=== PATIENT | male | born 1950 | race Caucasian/White ===

== ENCOUNTER 2024-11-08 10:30 | Outpatient (REF) | payer MEDICARE, OTHER, SELFPAY ==
--- OUTSIDE RECORDS SUMMARY | 2024-11-08 14:24 | XMS_ITS | Clinical Summary ---
Author Organization [facility] ity Address [address] [place] [address] Care Team Providers Care Process Worker Name Role Phone Manoj Bowers MD Primary [...] age to complete this topic Care Teams Process Worker Relationship Specialty Start Date End Date Manoj Bowers MD PCP - General Internal Medicine 10/02/20
[2024-11-08 18:22] LABS: MANUAL DIFF FLAG NO
[2024-11-08 18:28] LABS: Basophils Absolute Auto 0.1 X10*3/uL (0.0-0.2); Basophils Percent Auto 0.7 % (0-2); Eosinophils Absolute Auto 0.1 X10*3/uL (0.0-0.4); Eosinophils Percent Auto 1.2 % (0-4); Hemoglobin 15.6 g/dl (14.0-18.0); Imm Gran Abs Auto 0.05 X10*3/uL (0.00-0.03); Imm Gran Pct Auto 0.6 % (0.0-0.4); Lymphocytes Absolute Auto 1.1 X10*3/uL (1.2-4.9); Lymphocytes Percent Auto 12.7 % (20-40); Mean Corpuscular HGB Conc 34.7 g/dl (31.0-36.0); Mean Corpuscular Hemoglobin 32.2 pg (27.0-33.0); Mean Platelet Volume 10.8 fL (9.4-12.4); Monocytes Absolute Auto 0.7 X10*3/uL (0.1-1.2); Monocytes Percent Auto 8.5 % (2-11); Neutrophils Absolute Auto 6.4 x10*3/uL (2.0-8.3); Neutrophils Percent Auto 76.3 % (45-73); Platelet Count 225 X10*3/uL (160-400); Red Blood Count 4.84 X10*6/uL (4.60-5.80); Red Cell Distribution Width 12.1 % (11.0-16.0); White Blood Count 8.3 X10*3/uL (4.8-10.8)
[2024-11-08 18:43] LABS: Alanine Aminotransferase 27 U/L (0-40); Aspartate Amino Transferase 33 U/L (5-37); C Reactive Protein 1.17 mg/dL (< or = 0.50); Estimated Glomerular Filt Rate > 60
[2024-11-08 18:51] LABS: Rheumatoid Factor < 13.0 IU/mL (<15.0)
[2024-11-08 19:06] LABS: Erythrocyte Sedimentation Rate 12 MM/HR (0-15)
[2024-11-09 08:01] LABS: HBc Num1 0.15 S/CO (0.00-0.79); HBsAGNum1 0.44 S/CO (0.00-0.99); Hepatitis B Core Antibody Nonreactive (Nonreactive); Hepatitis B Surface Antigen Negative (Negative); ~HepC Num1 0.13 S/CO (0.00-0.79); ~Hepatitis B Surface Antibody NONREACTIVE (Nonreactive); ~Hepatitis C Antibody Nonreactive (Nonreactive)
[2024-11-11 13:48] LABS: TS Negative Control Passed; TS Panel A 0; TS Panel B 0; TS Positive Control Passed; TSpotTB Negative (Negative)
[2024-11-12 10:44] LABS: Anti Nuclear Antibody Screen NEGATIVE (NEGATIVE)
[2024-11-13 12:47] LABS: Cyclic Citrullinated Peptide <16 UNITS
== END 2024-11-08 10:31 | disposition home or self-care (01) ==
LOC: HO.HKASLDS 10:30
PROVIDERS: Visit Provider Internal Medicine Rheumatology
DX: M35.3 Polymyalgia rheumatica (principal); Z79.60 Long term (current) use of unspecified immunomodulators and immunosuppressants; Z79.899 Other long term (current) drug therapy; M19.90 Unspecified osteoarthritis, unspecified site; M62.81 Muscle weakness (generalized); M70.61 Trochanteric bursitis, right hip; M70.62 Trochanteric bursitis, left hip
CPT/HCPCS: 36415; 82085; 82550; 82565; 84450; 84460; 85025; 85652; 86038; 86140; 86200; 86431; 86481; 86704; 86706; 86803; 87340; 99202

== ENCOUNTER 2024-11-08 10:30 | Outpatient (AMB) | payer MEDICARE, OTHER, SELFPAY ==
--- NOTE | 2024-11-08 10:33 | A.OFFVIS_ITS ---
Vital Signs 11/08/24 10:41 Height 5 ft 11 in Weight 235 lb 7.259 oz BMI 32.8 BP 130/80 Blood Pressure Location Lt brachial Position Sitting Pulse 93 Pulse Source Pulse Oximeter Pulse Oximetry (%) 98 Intake Visit Reasons: PMR Intake Note: Pt presents today for a visit for PMR Allergies No Known Allergies Allergy (Verified 11/08/24 10:39) HPI HPI PMR: Details: In 05/2023, he had acute onset pain in groin/thighs, hard to get out of bed and chair to stand, progressing to have pain in shoulders in [place]. He had a difficultly with movement. 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 He had completed PT after knee replacement. PCP did workup, which revealed elevated ESR 81mmg/hr 07/26/2023. He was started on prednisone 20mg daily 10 weeks. He was on prednisone 10mg daily for 3 months. Slowly taper of prednisone. He is now on prednisone 4mg daily for 8 weeks. MS 1 hour. He has pain in hands and knees. When he decreased prednisone to 5mg daily he had difficulty with arm exercises, sit ups, walking causes soreness in hips. Hard to squat. He had a personal investment adviser prior to prednisone 5mg daily. He sleeps in, which is not normal for patient. He can sleep 12-15 hours. He has longstanding CARMENCITA with intolerance to mask. Last sleep apnea test was 10 years ago. Hx of prostate cancer s/p prostectomy, left TKR 02/2023, DM, CARMENCITA, thryroid nodule biopsied. Ex-smoker 15 years ago. Does not drink alcohol. 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 No history of rheumatological family history. Review of Systems Const All systems reviewed & are unremarkable except as noted in HPI and below Physical Exam Vital Signs: Last Vital Signs Pulse 93 11/08/24 10:41 BP 130/80 11/08/24 10:41 Pulse Ox 98 11/08/24 10:41 BMI result Body Mass Index 32.8 Const Other: General: Comfortable CVS: RRR Respiratory: clear to auscultation bilaterally. Good respiratory effort Skin: No lesions seen MSK: Synovitis left 2nd and 3rd MCP and right 3rd and 4th MCP without tenderness. Synovitis left 2nd PIP without tenderness. Weak media supervisor bilateral hands. Good range of motion of upper extremities. Limited external rotation bilateral hips. Bilateral trochanteric bursa tenderness found. Infrapatellar bursa fullness palpated without tenderness. No knee effusion present. Knee flexion 100 degrees bilateral. He is able to get up from seated position to standing position without using arms on armrest. 5/5 power upper extremities and lower extremities with a lot of effort. Assessment & Plan Assessment & Plan (1) Inflammatory arthritis: Comment: Was initially diagnosed with PMR but has developed synovitis in his hands to suggest inflammatory arthritis. Rheumatoid arthritis can present as atypically as PMR in the elderly. I have ordered workup and labs for further evaluation. He has subjective weakness and stopped working out with his technical trainer when prednisone was reduced to 5 mg daily. He has preserved strength but it requires a lot of effort. 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 He has increased fatigue and has needed to sleep 12-15 hours a day. He has background of uncontrolled sleep apnea which may be contributing along with chronic uncontrolled autoimmune disease. We discussed considering methotrexate as steroid sparing agent. Discussed side effects, benefits and drug monitoring on methotrexate. Code(s): M19.90 - Unspecified osteoarthritis, unspecified site Category: Medical Plan: Baseline x-rays ordered of hand and feet Labs ordered Increase prednisone to 7.5 mg daily Follow-up with sleep physician and consider reordering sleep study. He has not tolerated CPAP machine in the past. Consider discussing other options such as hardware placement. Return to clinic in 1 month (2) Muscle weakness: Comment: Preserved muscle strength on exam. Consider steroid induced myopathy contributing to subjective weakness. I will be further working up myopathy with ordering muscle enzymes and inflammatory markers. Code(s): M62.81 - Muscle weakness (generalized) Category: Medical Plan: Labs ordered (3) PMR (polymyalgia rheumatica): Comment: Initial diagnosed Code(s): M35.3 - Polymyalgia rheumatica Category: Medical Plan: See above (4) Greater trochanteric bursitis of both hips: Comment: Bilateral. Discussed diagnosis and management. Code(s): M70.61 - Trochanteric bursitis, right hip; M70.62 - Trochanteric bursitis, left hip Category: Medical Plan: PT ordered. He prefers to do PT local to his home at [facility]. Prescription given to patient. (5) Infrapatellar bursitis of right knee: Comment: Discussed diagnosis and management. Code(s): M70.51 - Other bursitis of knee, right knee Category: Medical Plan: He will try utilizing diclofenac gel 1% applied to affected area every 4-6 hours as needed Ice knee twice a day If no further improvement with above, I will order PT (6) Other penitentiary (current) drug therapy: Comment: Long-term use of glucorticosteroid therapy Code(s): Z79.899 - Other technician terminal and repeater (current) drug therapy Category: Medical Plan: He will need bone density if he has not had 1 in 2 years Orders: Orders Alanine Aminotransferase Today Z79.60 - terminal operations supervisor (current) use of unspecified immunomodulators and immunosuppressants Aspartate Amino Transferase Today Z79.60 - nursing home (current) use of unspecified immunomodulators and immunosuppressants Complete Blood Count Auto Diff Today Z79.60 - nursing home (current) use of uns pecified immunomodulators and immunosuppressants Creatinine Today Z79.60 - terminal operations supervisor (current) use of unspecified immunomodulators and immunosuppressants Erythrocyte Sedimentation Rate Today Z79.899 - Other technician terminal and repeater (current) drug therapy T Spot TB Today M19.90 - Unspecified osteoarthritis, unspecified site Hepatitis B,C Profile Today M19.90 - Unspecified osteoarthritis, unspecified site Cyclic Citrullinated Peptide Today M19.90 - Unspecified osteoarthritis, u nspecified site Creatine Kinase Total Today M62.81 - Muscle weakness (generalized) Aldolase Today M19.90 - Unspecified osteoarthritis, unspecified site, M35.3 - Polymyalgia rheumatica, M62.81 - Muscle weakness (generalized), M70.61 - Trochanteric bursitis, right hip, M70.62 - Trochanteric bursitis, left hip RU Reflex Titer and Pattern Today M19.90 - Unspecified osteoarthritis, unspecified site XR foot LT min 3V Today M19.90 - Unspecified osteoarthritis, unspecified site XR hand RT min 3V Today M19.90 - Unspecified osteoarthritis, unspecified site C Reactive Protein Today Z79.899 - Other penitentiary (current) drug therapy Rheumatoid Factor Today M19.90 - Unspecified osteoarthritis, unspecified site XR foot RT min 3V Today M19.90 - Unspecified osteoarthritis, unspecified site XR hand LT min 3V Today M19.90 - Unspecified osteoarthritis, unspecified site PT Evaluation and Treatment Today M70.61 - Trochanteric bursitis, right hip, M70.62 - Trochanteric bursitis, left hip Medications: New prednisone Take with food 7.5 mg (3 x 2.5 mg) PO DAILY 90 tabs 1RF Coding Level of Care Code New Pt Level 4 (21024) Diagnoses Inflammatory arthritis M19.90 Muscle weakness M62.81 PMR (polymyalgia rheumatica) M35.3 Greater trochanteric bursitis of both hips M70.61; M70.62 Infrapatellar bursitis of right knee M70.51 Other penitentiary (current) drug therapy Z79.899
[2024-11-08 10:41] VITALS: BP 130/80; PULSE 93; O2SAT 98; BMI 32.8
--- OUTSIDE RECORDS SUMMARY | 2024-11-08 12:16 | XMS_ITS | Clinical Summary ---
Author Organization [facility] ity Address [address] [place] [address] Care Team Providers Care Dna Sequencing Associate Name Role Phone Manoj Bowers MD Primary Care Provider Unavailab le Social History Tobacco Use Types Packs/Day Years Used Date Smoking Tobacco: Former Smokeless Tobacco: Never Alcohol Use Standard Drinks/Week Comments No 0 (1 standard drink = 0.6 oz pur e alcohol) Sex and Gender Information Value Date Recorded Sex Assigned at Not on file Legal Sex Male 6:42 PM EST Gender Identity Not on file Sexual Orientation Not on file Obstetrics History Last Filed Vital Signs Vital Sign Reading Time Taken Comments Blood Pressure 128/78 03/04/2022 9:35 AM EDT Pulse 77 03/04/2022 9:35 AM EDT Temperature - - Respiratory Rate - - Oxygen Saturation - - Inhaled Oxygen Concentration - - Weight 102 kg (225 lb 3.2 oz) 03/04/2022 9:35 AM EDT Height 180.3 cm (5' 11 ) 03/04/2022 9:35 AM EDT Body Mass Index 31.41 03/04/2022 9:35 AM EDT Plan of Treatment Health Maintenance Due Date Last Done Comments DTaP,Tdap,and Td Vaccines (1 - Tdap) 1971 Pneumococcal Vaccine: 50+ Ye ars (1 of 1 - PCV) 2002 Zoster Vaccines (1 of 2) 2002 Abdominal Aortic Aneurysm (A AA) Screen 08/21/2022 Cholesterol Screening (Lipid Panel) 08/21/2022 Colorectal Cancer Screening: Colonoscopy 08/21/2022 Depression Screening 08/21/2022 Falls Risk Assessment 08/21/2022 Hepatitis C Screening 08/21/2022 Social Influencers of Health Screening 08/21/2022 COVID-19 Vaccine (1 - 2023-2 5 season) 2024 Influenza Vaccine (#1) 2024 RSV Immunization Patients 60 + Years Old (1 - 1-dose 75+ series) 2027 HIB Vaccines Aged Out No longer eligi ble based on patient's age to complete this topic HPV Vaccines Aged Out No longer eligi ble based on patient's age to complete this topic Hepatitis A Vaccines Aged Out No long er eligible based on patient's age to complete this topic Hepatitis B Vaccines Aged Out No long er eligible based on patient's age to complete this topic IPV Vaccines Aged Out No longer eligi ble based on patient's age to complete this topic MMR Vaccines Aged Out No longer eligi ble based on patient's age to complete this topic Meningococcal ACWY Vaccine Aged Out N o longer eligible based on patient's age to complete this topic Meningococcal B Vacine Aged Out No lo nger eligible based on patient's age to complete this topic RSV Immunization Patients Un maye 20 months Aged Out No longer eligible b ased on patient's age to complete this topic Varicella Vaccines Aged Out No longer eligible based on patient's age to complete this topic Care Teams Dna Sequencing Associate Relationship Specialty Start Date End Date Manoj Bowers MD PCP - General Internal Medicine 10/02/20
== END 2024-11-08 11:48 | disposition home or self-care (01) ==
PROVIDERS: Visit Provider Internal Medicine Rheumatology
DX: M19.90 Unspecified osteoarthritis, unspecified site (principal); M62.81 Muscle weakness (generalized); M35.3 Polymyalgia rheumatica; M70.61 Trochanteric bursitis, right hip; M70.62 Trochanteric bursitis, left hip; M70.51 Other bursitis of knee, right knee; Z79.899 Other long term (current) drug therapy
CPT/HCPCS: 99204

== ENCOUNTER 2024-11-09 12:18 | Outpatient (REF) | payer MEDICARE, OTHER, SELFPAY ==
--- NOTE | ~2024-11-09 | XR_ITS ---
CLINICAL HISTORY: M19.90 - Unspecified osteoarthritis, unspecified site 3 view left hand Comparison: None Findings: No fractures or dislocations. There are changes of osteoarthritis in the 1st carpometacarpal joint No erosions. No radiopaque foreign body. IMPRESSION: 1. No acute findings This document has been electronically signed by: Gentry Naranjo MD on 11/09/2024 20:19:08
--- NOTE | ~2024-11-09 | XR_ITS ---
CLINICAL HISTORY: M19.90 - Unspecified osteoarthritis, unspecified site 3 view right hand Comparison: None Findings: No fractures or dislocations. There are changes of osteoarthritis in the 1st carpometacarpal joint. No erosions. No radiopaque foreign body. IMPRESSION: 1. No acute findings This document has been electronically signed by: Gentry Naranjo MD on 11/09/2024 20:57:10
--- NOTE | ~2024-11-09 | XR_ITS ---
CLINICAL HISTORY: M19.90 - Unspecified osteoarthritis, unspecified site 3 view left foot Comparison: None Findings: No fractures or dislocations. No significant loss of joint space, osteophytes, or erosions. No ankle effusion. No radiopaque foreign body. IMPRESSION: 1. No acute findings. This document has been electronically signed by: Gentry Naranjo MD on 11/09/2024 20:57:23
--- NOTE | ~2024-11-09 | XR_ITS ---
CLINICAL HISTORY: M19.90 - Unspecified osteoarthritis, unspecified site 3 view right foot Comparison: None Findings: Bones intact. No dislocations. No significant arthritic change or erosions. No ankle effusion. No radiopaque foreign body. IMPRESSION: 1. No acute findings. This document has been electronically signed by: Gentry Naranjo MD on 11/09/2024 20:57:18
--- OUTSIDE RECORDS SUMMARY | 2024-11-09 14:33 | XMS_ITS | Clinical Summary ---
Author Organization [facility] ity Address [address] [place] [address] Care Team Providers Care Oven Tender Bagels Name Role Phone Manoj Bowers MD Primary [...] age to complete this topic Care Teams Oven Tender Bagels Relationship Specialty Start Date End Date Manoj Bowers MD PCP - General Internal Medicine 10/02/20
== END 2024-11-09 12:19 | disposition home or self-care (01) ==
LOC: HO.XRAY 12:18
PROVIDERS: PCP Physician Assistant; Visit Provider Internal Medicine Rheumatology
DX: M19.90 Unspecified osteoarthritis, unspecified site (principal)
CPT/HCPCS: 73130; 73630

== ENCOUNTER → 2024-11-09 12:26 | Outpatient (BNV) | payer MEDICARE, OTHER, SELFPAY | PROVIDERS: PCP Physician Assistant; Visit Provider Specialist | DX: M19.041 Primary osteoarthritis, right hand (principal); M19.042 Primary osteoarthritis, left hand; M19.072 Primary osteoarthritis, left ankle and foot; M19.071 Primary osteoarthritis, right ankle and foot | CPT/HCPCS: 73130; 73630 ==

== ENCOUNTER 2024-11-14 13:06 | Outpatient (REF) | payer MEDICARE, OTHER, SELFPAY ==
--- OUTSIDE RECORDS SUMMARY | 2024-11-14 15:33 | XMS_ITS | Clinical Summary ---
Author Organization [facility] ity Address [address] [place] [address] Care Team Providers Care Family Preservation Worker Name Role Phone Manoj Bowers MD [...] age to complete this topic Care Teams Family Preservation Worker Relationship Specialty Start Date End Date Manoj Bowers MD PCP - General Internal Medicine 10/02/20
[2024-11-15 20:29] LABS: JO 1 Antibody <1.0 NEG AI (<1.0 NEG)
[2024-11-19 21:19] LABS: Aldolase 5.4 U/L (<=8.1)
[2024-11-21 11:44] LABS: Anti Nuclear Antibody Screen NEGATIVE
[2024-11-21 11:45] LABS: SM/Ribonucleoprotein Ab <1.0 NEG; Smith Protein <1.0 NEG
== END 2024-11-14 13:07 | disposition home or self-care (01) ==
LOC: HO.HKASLDS 13:06
PROVIDERS: Visit Provider Internal Medicine Rheumatology
DX: M62.81 Muscle weakness (generalized) (principal); M19.90 Unspecified osteoarthritis, unspecified site
CPT/HCPCS: 36415; 82085; 82550; 86038; 86235

== ENCOUNTER 2024-12-11 09:01 | Outpatient (AMB) | payer MEDICARE, OTHER, SELFPAY ==
--- NOTE | 2024-12-11 09:08 | A.OFFVIS_ITS ---
Vital Signs 12/11/24 09:09 Height 5 ft 11 in Weight 228 lb 9.91 oz BMI 31.9 BP 128/78 Blood Pressure Location Rt brachial Position Sitting Pulse 78 Pulse Source Pulse Oximeter Pulse Oximetry (%) 98 Oxygen Delivery Method Room Air Intake Visit Reasons: 1 Month Intake Note: Patient is here for follow up on PMR and lab and x-ray review. Allergies No Known Allergies Allergy (Verified 12/11/24 09:15) Review of Systems Const All systems reviewed & are unremarkable except as noted in HPI and below Physical Exam Vital Signs: Last Vital Signs Pulse 78 12/11/24 09:09 BP 128/78 12/11/24 09:09 Pulse Ox 98 12/11/24 09:09 Oxygen Delivery Method Room Air 12/11/24 09:09 BMI result Body Mass Index 31.9 Const Other: General: Comfortable CVS: RRR Respiratory: clear to auscultation bilaterally. Good respiratory effort Skin: No lesions seen MSK: Synovitis left 2nd and 3rd MCP and right 2-4th MCP with tenderness. Synovitis left 2nd and 3rd PIP with tenderness. Normal range of motion of upper extremities. Limited external rotation bilateral hips. Bilateral trochanteric bursa tenderness found. No knee effusion present. Knee flexion 100 degrees bilateral. He is able to get up from seated position to standing position without using arms on armrest. 5/5 power upper extremities, 4/5 power right hip flexor. Rest of lower extremity is 5/5 power. Assessment & Plan Assessment & Plan (1) Muscle weakness: Comment: With proximal right lower extremity weakness on exam, inflammatory arthritis affecting hands, mild elevation in muscle enzymes, mild elevation in CRP on prednisone 5mg qd. Recent labs on higher dose of prednisone from 5 mg daily to 7.5 mg daily shows improvement of muscle enzyme CK and patient is more functional. He is participating in physical therapy. There is a possibility that he may have overlap syndrome with seronegative RA (-RU/RF/CCP/ACCOUNTS COLLECTOR/Sm) and idiopathic inflammatory myositis. We discussed doing further workup for myositis as it will aid management with effecting choice of DMARD therapy. Patient agrees with plan History: Initially he presented as PMR 05/2023 with weakness in his thighs/pain in groins progressing to bilateral shoulder pain. ESR was 81 mm/hr. He was diagnosed with PMR and treated for with prednisone 20mg qd tapered slowly but has relapsed when prednisone was decreased to 5 mg daily with development of inflammatory arthritis, lower extremity weakness R>L. Code(s): M62.81 - Muscle weakness (generalized) Category: Medical Plan: MRI right femur with and without contrast which will aid targeted muscle biopsy Continue prednisone 7.5 mg daily I am avoiding EMG study because if EMG of right lower extremity is performed it may interfere with interpretation of muscle biopsy results of the affected muscle Myositis specific panel ordered Calcium, albumin vitamin-D ordered due to long-term glucocorticoid use. He will need a bone density if he has not had one in the last 2 years. Return to clinic after MRI to review results (2) Other buttermaker continuous churn (current) drug therapy: Comment: Long-term use of glucocorticoid therapy Code(s): Z79.899 - Other buttermaker continuous churn (current) drug therapy Category: Medical Plan: See above (3) PMR (polymyalgia rheumatica): Comment: Initial diagnosed 05/2023 with relapse disease when prednisone was tapered to 5 mg daily. Code(s): M35.3 - Polymyalgia rheumatica Category: Medical Plan: See above (4) Inflammatory arthritis: Code(s): M19.90 - Unspecified osteoarthritis, unspecified site Category: Medical Plan: see above Orders: Orders Aldolase 12/11/24 M62.81 - Muscle weakness (generalized) MSA Panel 11 Myositis Spec Abs 12/11/24 M62.81 - Muscle weakness (generalized) Vitamin D 25-OH (D2 and D3) 12/11/24 Z79.899 - Other buttermaker continuous churn (current) drug therapy Calcium 12/11/24 Z79.899 - Other half-way (current) drug therapy Erythrocyte Sedimentation Rate 12/11/24 Z79.899 - Other buttermaker continuous churn (current) drug therapy Creatine Kinase Total 12/11/24 M62.81 - Muscle weakness (generalized) Creatinine 12/11/24 M62.81 - Muscle weakness (generalized) UA w Microscopic 12/11/24 M62.81 - Muscle weakness (generalized) MR femur RT wo/w con 12/17/24 M62.81 - Muscle weakness (generalized) Medications: Refilled prednisone Take with food 7.5 mg (3 x 2.5 mg) PO DAILY 90 tabs 1RF Coding Level of Care Code Est Pt Level 4 (41365) Complex EM visit Add On G2211 Diagnoses Muscle weakness M62.81 Other half-way (current) drug therapy Z79.899 PMR (polymyalgia rheumatica) M35.3 Inflammatory arthritis M19.90
[2024-12-11 09:09] VITALS: BP 128/78; PULSE 78; O2SAT 98; BMI 31.9
--- OUTSIDE RECORDS SUMMARY | 2024-12-11 09:46 | XMS_ITS | Clinical Summary ---
Author Organization [facility] ity Address [address] [place] [address] Care Team Providers Care Burrer Hand Name Role Phone Manoj Bowers MD Primary [...] age to complete this topic Care Teams Burrer Hand Relationship Specialty Start Date End Date Manoj Bowers MD PCP - General Internal Medicine 10/02/20
--- OUTSIDE RECORDS SUMMARY | 2024-12-11 09:46 | XMS_ITS ---
Author Name [facility] Organization Unknown History of Medication Use Medication Directions Dispensed Refills Start Date End Date Stat Adult Low Dose Aspirin c ompleted Adderall completed mirtazapine completed valacyclovir (tablet) 1 g co mpleted prednisone 0 completed metformin (Tablet, Extended Release 24 hr) 500 mg c ompleted rosuvastatin completed Encounters Encounter Type Encounter Reason Primary Diagnosis Location Date Ambulatory [facility] 11/10 Care Team Organization Name Specialty Phone Email Start Date End Da te [facility] 11/21/2024 [facility] 11/16/2024
== END 2024-12-11 10:09 | disposition home or self-care (01) ==
LOC: HO.RHES 09:01
PROVIDERS: Visit Provider Internal Medicine Rheumatology
DX: M62.81 Muscle weakness (generalized) (principal); Z79.899 Other long term (current) drug therapy; M35.3 Polymyalgia rheumatica; M19.90 Unspecified osteoarthritis, unspecified site
CPT/HCPCS: 99214; G2211

== ENCOUNTER 2024-12-11 09:01 | Outpatient (REF) | payer MEDICARE, OTHER, SELFPAY ==
--- OUTSIDE RECORDS SUMMARY | 2024-12-11 12:01 | XMS_ITS | Clinical Summary ---
Author Organization [facility] ity Address [address] [place] [address] Care Team Providers Care Boilermaker Welder Name Role Phone Manoj Bowers MD Primary [...] age to complete this topic Care Teams Boilermaker Welder Relationship Specialty Start Date End Date Manoj Bowers MD PCP - General Internal Medicine 10/02/20
[2024-12-11 19:49] LABS: Erythrocyte Sedimentation Rate 3 MM/HR (0-15)
[2024-12-11 19:56] LABS: Calcium 9.4 mg/dL (8.4-10.2); Estimated Glomerular Filt Rate > 60
[2024-12-13 21:28] LABS: JO 1 Antibody <1.0 NEG AI (<1.0 NEG)
[2024-12-15 15:34] LABS: Vitamin D 25-OH, D2 <4 ng/mL; Vitamin D 25-OH, D3 33 ng/mL; Vitamin D 25-OH, Total 33 ng/mL (30-100)
[2024-12-16 06:54] LABS: Aldolase 5.6 U/L (<=8.1)
[2024-12-20 23:54] LABS: Ej Ab <11 SI (<11); Jo-1 Ab <11 SI (<11); MDA5 Ab <11 SI (<11); Mi-2 alpha Ab <11 SI (<11); Mi-2 beta Ab <11 SI (<11); NXP-2 (MJ) Ab <11 SI (<11); Oj Ab <11 SI (<11); Pl-12 Ab <11 SI (<11); Pl-7 Ab <11 SI (<11); SRP Ab <11 SI (<11); TIF1 gamma Ab <11 SI (<11)
== END 2024-12-11 09:02 | disposition home or self-care (01) ==
LOC: HO.HKASLDS 09:01
PROVIDERS: Visit Provider Internal Medicine Rheumatology
DX: M62.81 Muscle weakness (generalized) (principal); Z79.899 Other long term (current) drug therapy; M19.90 Unspecified osteoarthritis, unspecified site; M35.3 Polymyalgia rheumatica
CPT/HCPCS: 36415; 82085; 82306; 82310; 82550; 82565; 84182; 85652; 86235; 99212

== ENCOUNTER → 2024-12-17 10:49 | Outpatient (BNV) | payer MEDICARE, OTHER, SELFPAY | PROVIDERS: PCP Physician Assistant; Visit Provider Radiology Diagnostic Radiology | DX: M62.81 Muscle weakness (generalized) (principal) | CPT/HCPCS: 73720 ==

== ENCOUNTER 2024-12-17 10:52 | Outpatient (REF) | payer MEDICARE, OTHER, SELFPAY ==
--- NOTE | ~2024-12-17 | MR_ITS ---
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 Comparison: None Findings: The examination demonstrates normal-appearing musculature. There is no evidence of muscle edema. There is no evidence of abscess. The fascia is within normal limits. No enhancing abnormalities are seen. The vasculature appears unremarkable. The bones are within normal limits. Impression: Normal examination. No evidence of myositis or other acute process This document has been electronically signed by: Jasper Boyd MD on 12/18/2024 14:15:17
[2024-12-17] MEDS: gadobutroL 10 ML VIAL IVPUSH (11:46)
--- OUTSIDE RECORDS SUMMARY | 2024-12-17 13:01 | XMS_ITS | Clinical Summary ---
Author Organization [facility] ity Address [address] [place] [address] Care Team Providers Care Medical Technician Assistant Name Role Phone Manoj Bowers MD Primary [...] 2024 Influenza Vaccine (#1) 2024 RSV Immunization Adult Patie nts (1 - 1-dose 75+ series) 2027 HIB [...] age to complete this topic Care Teams Medical Technician Assistant Relationship Specialty Start Date End Date Manoj Bowers MD PCP - General Internal Medicine 10/02/20
== END 2024-12-17 10:53 | disposition home or self-care (01) ==
LOC: HO.MRI 10:52
PROVIDERS: PCP Physician Assistant; Visit Provider Internal Medicine Rheumatology
DX: M62.81 Muscle weakness (generalized) (principal)
CPT/HCPCS: 73720; A9585

== ENCOUNTER 2024-12-19 13:51 | Outpatient (REF) | payer MEDICARE, OTHER, SELFPAY ==
--- OUTSIDE RECORDS SUMMARY | 2024-12-19 16:05 | XMS_ITS | Clinical Summary ---
Author Organization [facility] ity Address [address] [place] [address] Care Team Providers Care Juice Packaging Machines Setter Name Role Phone Manoj Bowers MD Primary [...] age to complete this topic Meningococcal B Vaccine Aged Out No l onger eligible based on patient's age to complete this topic RSV Immunization Patients Un maye 20 months Aged Out No longer eligible b ased on patient's age to complete this topic Varicella Vaccines Aged Out No longer eligible based on patient's age to complete this topic Care Teams Juice Packaging Machines Setter Relationship Specialty Start Date End Date Manoj Bowers MD PCP - General Internal Medicine 10/02/20
[2024-12-19 18:37] LABS: Appearance Urine Turbid; Color Urine Dark Yellow; Glucose Urine UA Negative (Negative); Leukocyte Esterase Urine Negative (Negative); Nitrite Urine Negative (Negative); PH 5.5 (5.0-9.0); Specific Gravity - Urine 1.025 (1.005-1.025); UMIC TRIGGER UA YES; Urine Blood Negative (Negative); Urine Ketones Trace mg/dL (Negative); Urine Protein 30 (1+) mg/dL (Neg-Trace)
[2024-12-19 19:02] LABS: Bacteria Urine None Seen (None Seen); Calcium Oxalate Crystals Urine Present; RBC Urine 0-2 /HPF (0-2); Squamous Epithelial Cell Urine 0-2 /HPF (0-2); WBC Urine 0-5 /HPF (0-5)
== END 2024-12-19 13:52 | disposition home or self-care (01) ==
LOC: HO.HKASLDS 13:51
PROVIDERS: Visit Provider Internal Medicine Rheumatology
DX: M62.81 Muscle weakness (generalized) (principal)
CPT/HCPCS: 81001

== ENCOUNTER 2025-01-11 08:26 | Outpatient (AMB) | payer MEDICARE, OTHER, SELFPAY ==
[2025-01-11 08:33] VITALS: BP 128/86; PULSE 67; O2SAT 98; BMI 31.7
--- NOTE | 2025-01-11 08:33 | MHC.OFFVIS ---
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 Patient referred from Albaro Nelson. Last PSG done 2007. Allergies No Known Allergies Allergy (Verified 01/11/25 08:38) HPI Comments Details: 74 year old male with h/o PMR here for an evaluation of sleep. Today pt states he feels chronically fatigued and unable to focus despite going to bed at 9pm and getting up at 6am, sometimes he averages 12 hours of sleep. He continues to holds his breath at night, and has tried the cpap machine, oral mandibular appliances and Provent nose bandages which worked well for him at one point. He was diagnosed with PMR and started on Prednisone now 7.5mg PO daily as this has helped immensely with his proximal muscle pain. He had prostate cancer treated with RALP 08/2022, L. TKR, and T2DM. He denies morning headaches, parasomnias and RLS. He has chronic proximal muscle pain, difficulty getting up out of a chair, goes to PT regularly and is being followed by Rheumatology. 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 He is trying to wean himself off of mirtazapine for sleep, per pscyhiatrist now on 15mg po daily. His mood is good, he has no difficulty with his diet and is trying to lose weight. He does not smoke or drink alcohol. [facility] Medical History (Updated 01/11/25 @ 10:09 by Armando Lr PA-C) Excessive daytime sleepiness PMR (polymyalgia rheumatica) Excessive daytime sleepiness CARMENCITA (obstructive sleep apnea) Other custodial (current) drug therapy Inflammatory arthritis Greater trochanteric bursitis of both hips Muscle weakness Infrapatellar bursitis of right knee Family History (Updated 01/11/25 @ 09:58 by Armando Lr PA-C) Father Type I diabetes mellitus Mother Breast cancer Son Type I diabetes mellitus [facility] Medical History (Updated 01/11/25 @ 10:09 by Armando Lr PA-C) Excessive daytime sleepiness PMR (polymyalgia rheumatica) Excessive daytime sleepiness CARMENCITA (obstructive sleep apnea) 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 Inflammatory arthritis Greater trochanteric bursitis of both hips Muscle weakness Infrapatellar bursitis of right knee Family History (Updated 01/11/25 @ 09:58 by Armando Lr PA-C) Father Type I diabetes mellitus Mother Breast cancer Son Type I diabetes mellitus Review of Systems ENT Denies tongue swelling Aller/Immun Denies tongue swelling Physical Exam Vital Signs: Last Vital Signs Pulse 67 01/11/25 08:33 BP 128/86 01/11/25 08:33 Pulse Ox 98 01/11/25 08:33 Oxygen Delivery Method Room Air 01/11/25 08:33 BMI result Body Mass Index 31.7 Const General: cooperative, comfortable and no acute distress Orientation/consciousness: patient oriented x3 HEENT Face and sinus: Yes face symmetric Teeth and gingiva: other ([place] score 3) Eyes Pupils: Equal, round and reactive pupils present Neck Neck: Yes full ROM Resp Effort & Inspection: normal respiratory effort and able to speak in complete sentences Neuro General: patient oriented x3 Cranial nerves: Yes Facial sensation intact/muscles of mastication intact, Yes Equal, round and reactive pupils present, Yes Midline tongue present, Yes Ability to bilaterally rotate head present and Yes Ability to bilaterally elevate shoulders present Cognition (Neuro): normal cognition Gait exam (Neuro): Normal gait present Motor exam (neuro): 5/5 motor strength present throughout Deep tendon reflexes (DTR's): Right triceps reflex intensity grade: 2+, Left triceps reflex intensity grade: 2+, Rt Biceps (C5, C6): 2+, Left biceps reflex intensity grade: 2+, Right brachioradialis reflex intensity grade: 2+, Left brachioradialis reflex intensity grade: 2+, Right patellar reflex intensity grade: 2+, Left patellar reflex intensity grade: 2+, Right ankle reflex intensity grade: 2+ and Left ankle reflex intensity grade: 2+ Psych Appearance: grossly normal Attitude: cooperative Thought process: Normal thought process present Thought content: Normal thought content present Results Reviewed Results Reviewed: consultation [facility] consultation Rheumatology osteoarthritis Labs Assessment & Plan Assessment & Plan (1) Excessive daytime sleepiness: Code(s): G47.19 - Other hypersomnia Category: Medical (2) CARMENCITA (obstructive sleep apnea): Code(s): G47.33 - Obstructive sleep apnea (adult) (pediatric) Category: Medical (3) Fatigue: Code(s): R53.83 - Other fatigue Category: Medical Qualifiers: Fatigue type: chronic, unspecified Qualified Code(s): R53.82 - Chronic fatigue, unspecified Plan CARMENCITA will evaluate with HST, asked him to dowload the [employer] mary. Fatigue will r/o deficiencies with labs TSH, B12/MMA/ Folate Homocysteine, Ferritin F/u in 3 months Orders: Orders Methylmalonic Acid Today G47.19 - Other hypersomnia, G47.9 - Sleep disorder, unspecified, R53.83 - Other fatigue TSH reflex Free T4 Today G47.19 - Other hypersomnia RT home sleep study Today G47.19 - Other hypersomnia, G47.33 - Obstructive sleep apnea (adult) (pediatric) Ferritin Today G47.19 - Other hypersomnia Hemoglobin A1c Today G47.19 - Other hypersomnia Vitamin B12 and Folate Today G47.19 - Other hypersomnia Homocysteine Today G47.19 - Other hypersomnia, G47.9 - Sleep disorder, unspecified, R53.83 - Other fatigue Patient Instructions: Sleep Hygiene provided: set a scheduled bedtime and wake time to help regulate the circadian rhythm and balance the release of pituitary hormones. Sleep in a dark room, temperatures below 68 degrees, and no devices n bed. Limit caffeinated products 6 hours prior to bed, and limit fluids 2-4 hours prior to bed. Gentle night yoga, diffusing essential oils, and playing soft music can be relaxing. Coding Level of Care Code New Pt Level 4 (97284) Diagnoses Excessive daytime sleepiness G47.19 CARMENCITA (obstructive sleep apnea) G47.33 Chronic fatigue R53.82 Fatigue type: chronic, unspecified Time Spent (min) 30 Comment evaluation of sleep Sleep Questionnaire Difficulty falling asleep: Yes Difficulty staying asleep?: No Number of arousals: 0-1 Snoring: Yes Witnessed apneas: Yes Gasping arousals: No Nocturia: No GERD: Yes Vivid dreams: Yes (remembers them situational people from past.) Acting out dreams: No Abnormal behavior in sleep: No Abnormal movements in sleep: No (rls denies pins needles) Morning headaches: No Excessive daytime sleepiness: Yes Daytime naps: No Restless legs: No (occasionally) Hallucinations: No Sleep paralysis: No Drop attacks: No Sleep Study: Yes CPAP: No
--- OUTSIDE RECORDS SUMMARY | 2025-01-11 08:49 | XMS_ITS | Clinical Summary ---
Author Organization [facility] ity Address [address] [place] [address] Care Team Providers Care Senior Litigation Paralegal Name Role Phone Manoj Bowers MD Primary [...] Influencers of Health Screening 08/21/2022 COVID-19 Vaccine ( - 2023-2 5 season) 2024 Influenza Vaccine (Season Ended) 2025 RSV Immunization Adult Patie nts (1 - [...] age to complete this topic Care Teams Senior Litigation Paralegal Relationship Specialty Start Date End Date Manoj Bowers MD PCP - General Internal Medicine 10/02/20
== END 2025-01-11 09:20 | disposition home or self-care (01) ==
LOC: HO.HSMS 08:27
PROVIDERS: PCP Physician Assistant; Visit Provider Physician Assistant Medical
DX: G47.19 Other hypersomnia (principal); G47.33 Obstructive sleep apnea (adult) (pediatric); R53.82 Chronic fatigue, unspecified
CPT/HCPCS: 99204

== ENCOUNTER → 2025-01-11 08:26 | Outpatient (BNVA) | payer MEDICARE, OTHER, SELFPAY | PROVIDERS: PCP Physician Assistant; Visit Provider Physician Assistant Medical | DX: G47.33 Obstructive sleep apnea (adult) (pediatric) (principal); G47.19 Other hypersomnia; R53.82 Chronic fatigue, unspecified | CPT/HCPCS: 99202 ==

== ENCOUNTER → 2025-03-25 08:43 | Outpatient (REF) | payer MEDICARE, OTHER, SELFPAY ==
--- OUTSIDE RECORDS SUMMARY | 2025-03-25 08:48 | XMS_ITS | Clinical Summary ---
Author Organization [facility] ity Address [address] [place] [address] Care Team Providers Care Houseperson Name Role Phone Manoj Bowers MD Primary [...] 2023-2 5 season) 2024 Influenza Vaccine (#1) 2025 RSV Immunization Adult Patie nts (1 [...] age to complete this topic Care Teams Houseperson Relationship Specialty Start Date End Date Manoj Bowers MD PCP - General Internal Medicine 10/02/20
--- OUTSIDE RECORDS SUMMARY | 2025-03-25 08:49 | XMS_ITS ---
Author Name [facility] Organization Unknown History of Medication Use Medication Directions Dispensed Refills Start Date End Date Stat Adderall completed Adult Low Dose Aspirin c ompleted metformin (Tablet, Extended Release 24 hr) 500 mg c ompleted mirtazapine completed prednisone 0 completed rosuvastatin completed valacyclovir (tablet) 1 g co mpleted Encounters Encounter Type Encounter Reason [facility] Diagnosis [facility] Care Team Organization Name Specialty Phone Email Start Date End Da te [facility]
== END ==
LOC: HO.SL 08:43
PROVIDERS: PCP Physician Assistant; Visit Provider Physician Assistant Medical
DX: G47.19 Other hypersomnia (principal); G47.33 Obstructive sleep apnea (adult) (pediatric)
CPT/HCPCS: 95806

== ENCOUNTER → 2025-03-25 08:54 | Outpatient (BNV) | payer MEDICARE, OTHER, SELFPAY | PROVIDERS: PCP Physician Assistant; Visit Provider Psychiatry & Neurology Neurology | DX: G47.33 Obstructive sleep apnea (adult) (pediatric) (principal) | CPT/HCPCS: 95806 ==

== ENCOUNTER 2025-03-28 14:44 | Outpatient (REF) | payer MEDICARE, OTHER, SELFPAY ==
--- NOTE | 2025-03-28 14:47 | EMG_ITS ---
Chief complaint: 2 years ago, patient started having right-sided upper and lower extremity weakness. At that time, he also noted numbness and swelling of both feet. He was diagnosed with PMR and started on prednisone. He maintains that prednisone has greatly helped the weakness. He tried to self wean but the weakness came back. He denies any new weakness or any new numbness. Denies any new atrophy. Denies fasciculations. Reason for referral: Evaluate for myopathy Referred by: Dr. Muñiz Procedure done: Bilateral upper and lower extremity NCS/EMG Precautions and/or limitations: None The limb temperature was monitored continuously and remained between 32-36 degrees C during the performance of the NCS. Ulnar motor NCS was performed with moderate elbow flexion between 70-90 degrees, with across-elbow distance of 10 cm. Nerve Conduction Studies Anti Sensory Summary Table ?Stim Site NR Onset (ms) Norm Onset (ms) Peak (ms) Norm Peak (ms) O-P Amp (?V) Norm O-P Amp Site1 Site2 Delta-0 (ms) Dist (cm) Fritz (m/s) Norm Fritz (m/s) Left Median Anti Sensory (2nd Digit) Wrist ? 2.8 3.5 <3.6 19.2 >10 Wrist 2nd Digit 2.8 14.0 50 Right Median Anti Sensory (2nd Digit) Wrist ? 2.9 3.7 <3.6 9.9 >10 Wrist 2nd Digit 2.9 14.0 48 Right Median Anti Sensory Run #2 (2nd Digit) Wrist ? 3.0 4.0 <3.6 11.9 >10 Wrist 2nd Digit 3.0 14.0 47 Left Radial Anti Sensory (Thumb) Forearm ? 1.7 2.1 <3.1 16.5 Forearm Thumb 1.7 0.0 Right Radial Anti Sensory (Thumb) Forearm ? 1.8 2.2 <3.1 6.1 Forearm Thumb 1.8 0.0 Left Sural Anti Sensory (Lat Mall) Calf ? 2.8 3.5 <4.0 2.9 >5.0 Calf Lat Mall 2.8 14.0 50 Right Sural Anti Sensory (Lat Mall) Calf NR <4.0 >5.0 Calf Lat Mall 14.0 Left Ulnar Anti Sensory (5th Digit) Wrist ? 2.2 2.9 <3.7 16.0 >15.0 Wrist 5th Digit 2.2 14.0 64 Right Ulnar Anti Sensory (5th Digit) Wrist ? 2.4 3.0 <3.7 7.3 >15.0 Wrist 5th Digit 2.4 14.0 58 Right Ulnar Anti Sensory Run #2 (5th Digit) Wrist ? 2.6 3.4 <3.7 3.4 >15.0 Wrist 5th Digit 2.6 14.0 54 Motor Summary Table ?Stim Site NR Onset (ms) Norm Onset (ms) O-P Amp (mV) Norm O-P Amp iAmp (mV) Amp (1st) (%) Site1 Site2 Delta-0 (ms) Dist (cm) Fritz (m/s) Norm Fritz (m/s) Left Median Motor (Abd Poll Brev) Wrist ? 3.8 <3.9 6.6 >4.5 8.1 100.0 Elbow Wrist 4.5 23.5 52 >45 Elbow ? 8.3 6.1 7.4 92.4 Right Median Motor (Abd Poll Brev) Wrist ? 3.9 <3.9 8.1 >4.5 10.1 100.0 Elbow Wrist 4.3 22.0 51 >45 Elbow ? 8.2 7.5 9.6 92.6 Left Peroneal Motor (Ext Dig Brev) Ankle ? 4.8 <4.0 5.1 >2.5 6.5 100.0 Ankle Ext Dig Brev 4.8 0.0 B Fib ? 12.4 5.5 6.7 107.8 B Fib Ankle 7.6 34.0 45 >40 Poplt ? 13.6 5.2 6.4 102.0 Poplt B Fib 1.2 5.5 46 >40 Run #1 (Ext Dig Brev) Ankle ? 5.1 <4.0 3.8 >2.5 4.7 100.0 Ankle Ext Dig Brev 5.1 0.0 B Fib ? 12.7 6.9 8.1 181.6 B Fib Ankle 7.6 33.5 44 >40 Poplt ? 14.3 6.7 7.8 176.3 Poplt B Fib 1.6 6.5 41 >40 Right Peroneal Motor Run #2 (Ext Dig Brev) Ankle ? 5.3 <4.0 1.3 >2.5 1.6 100.0 Ankle Ext Dig Brev 5.3 0.0 B Fib ? 12.7 6.9 8.2 530.8 B Fib Ankle 7.4 33.0 45 >40 Poplt ? 14.0 6.8 8.0 523.1 Poplt B Fib 1.3 6.5 50 >40 Right Tibial Motor (Abd Godoy Brev) Ankle ? 4.9 <5 14.4 >2.5 18.4 100.0 Ankle Abd Godoy Brev 4.9 0.0 Knee ? 15.3 10.8 13.8 75.0 Knee Ankle 10.4 45.0 43 >40 Left Ulnar Motor (Abd Dig Minimi) Wrist ? 3.0 <3.0 7.2 >5 8.2 100.0 B Elbow Wrist 3.7 20.0 54 >45 B Elbow ? 6.7 7.2 8.3 100.0 A Elbow B Elbow 1.6 10.0 62 >45 A Elbow ? 8.3 7.1 8.3 98.6 Right Ulnar Motor (Abd Dig Minimi) Wrist ? 2.7 <3.0 7.8 >5 9.4 100.0 B Elbow Wrist 3.9 22.0 56 >45 B Elbow ? 6.6 7.7 9.7 98.7 A Elbow B Elbow 1.3 10.0 77 >45 A Elbow ? 7.9 8.2 10.3 105.1 EMG ?Side Muscle Nerve Root Ins Act Fibs Psw Amp Dur Poly Recrt Int Pat Comment Right 1stDorInt Ulnar C8-T1 Nml Nml Nml Nml Nml 0 Nml Complete Right FlexCarRad Median C6-7 Nml Nml Nml Nml Nml 0 Nml Complete Right Biceps Musculocut C5-6 Nml Nml Nml Nml Nml 0 Nml Complete Right Triceps Radial C6-7-8 Nml Nml Nml Nml Nml 0 Nml Complete Right Deltoid Axillary C5-6 Nml Nml Nml Nml Nml 0 Nml Complete Right AbdHallucis MedPlantar S1-2 Nml Nml Nml Nml Nml 0 Nml Complete Right AntTibialis Dp Br Peron L4-5 Nml Nml Nml Nml Nml 0 Nml Complete Right PostTibialis Tibial L5, S1 Nml Nml Nml Nml Nml 0 Nml Complete Right MedGastroc Tibial S1-2 Nml Nml Nml Nml Nml 0 Nml Complete Right VastusMed Femoral L2-4 Nml Nml Nml Nml Nml 0 Nml Complete Left AbdHallucis MedPlantar S1-2 Nml Nml Nml Nml Nml 0 Nml Complete Left AntTibialis Dp Br Peron L4-5 Nml Nml Nml Nml Nml 0 Nml Complete Left PostTibialis Tibial L5, S1 Nml Nml Nml Nml Nml 0 Nml Complete Left MedGastroc Tibial S1-2 Nml Nml Nml Nml Nml 0 Nml Complete Left VastusMed Femoral L2-4 Nml Nml Nml Nml Nml 0 Nml Complete Paraspinal EMG ?Side Muscle Nerve Root Ins Act Fibs Psw Comment Right Cervical Upper Rami Nml Nml Nml Right Cervical Mid Rami Nml Nml Nml Right Cervical Lower Rami Nml Nml Nml Right Lumbar Upper Rami Nml Nml Nml Right Lumbar Mid Rami Nml Nml Nml Right Lumbar Lower Rami Nml Nml Nml Left Lumbar Upper Rami Nml Nml Nml Left Lumbar Mid Rami Nml Nml Nml Left Lumbar Lower Rami Nml Nml Nml FINDINGS: Right peroneal nerve showed prolonged distal latency, small amplitude and normal conduction velocity. Left peroneal nerve showed prolonged distal latency, normal amplitude and normal conduction velocity. Right median sensory nerve showed mildly prolonged peak latency and small amplitude. Right ulnar sensory nerve showed small amplitude. Right radial sensory nerve showed small amplitude. Compared to left side, left side showed normal amplitudes for median, ulnar and radial sensory nerves. Left sural nerve showed small amplitude. Right sural nerve absent response. All other nerves tested were within normal. Concentric needle EMG was performed in selected muscles of the right upper and bilateral lower extremities, cervical and lumbar paraspinals. Study did not reveal signs of electric abnormalities as shown in the table above. No denervation seen on paraspinals. No myopathic looking units. No fasciculations. IMPRESSION: 1. This is an abnormal study. 2. 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 3. There is no electrodiagnostic evidence for entrapment neuropathy or radiculopathy. No evidence for myopathic disorder or motor neuron disorder. CLINICAL COMMENT: Further clinical correlation recommended. Thank you for your kind referral. Delphine Contreras MD, AMEE Board Certified, [place] Board [employer] Medicine and Rehabilitation (ABPMR) Board Certified, [place] Board of Electrodiagnostic Medicine (ABEM) CODIN 14132 x 3 MTDD
--- OUTSIDE RECORDS SUMMARY | 2025-03-28 15:27 | XMS_ITS | Clinical Summary ---
Author Organization [facility] ity Address [address] [place] [address] Care Team Providers Care Soccer Commentator Name Role Phone Manoj Bowers MD Primary [...] age to complete this topic Care Teams Soccer Commentator Relationship Specialty Start Date End Date Manoj Bowers MD PCP - General Internal Medicine 10/02/20
--- OUTSIDE RECORDS SUMMARY | 2025-03-28 15:27 | XMS_ITS | Clinical Summary ---
Author Organization [facility] Address [address] [place] [address] Care Team Providers Care Histopathology Technician Name Role Phone Manoj Bowers MD Primary Care Provider Unavaila ble Allergies No known active allergies Medications Medication Sig Dispensed Refills Start Date End Date Status amphetamine-dextroamp hetamine (ADDERALL, 10MG,) 10 MG tablet Take 10 mg by mouth 4 times daily. 0 Active aspirin (ASPIRIN LOW DOSE) 81 MG tablet Take 1 Tab by mouth daily. 0 Active sildenafil (VIAGRA) 100 MG tablet 100 mg. 0 Active ibuprofen (ADVIL,MOTRIN) 400 MG tablet 400 mg. 0 Active rosuvastatin (CRESTOR) 20 MG tablet Take 20 mg by mouth daily. 0 Active cilostazol (PLETAL) 100 MG tablet Take 100 mg by mouth 2 times daily. 0 Active mirtazapine (REMERON) 45 MG tablet Take 45 mg by mouth at bedtime. 0 Active Eszopiclone 3 MG TabIndications:Insomn ia, unspecified type Take 1 Tablet by mouth at bedtime as needed for Insomnia for up to 30 days. 30 Tablet 3 07/15/2022 Active Social History Tobacco Use Types Packs/Day Years Used Date Smoking Tobacco: Former Smokeless Tobacco: Never Tobacco Cessation:Counseling Given: No Alcohol Use Standard Drinks/Week Comments No 0 (1 standard drink = 0.6 oz pur e alcohol) Alcohol Habits Answer Date Recorded How often do you have a drink containing alcohol ? Never 10/09/2020 How many drinks containing a lcohol do you have on a typical day when you are drinking? Not asked How often do you have six or more drinks on one occasion? Not asked Sex Assigned at Date Recorded Not on file Last Filed Vital Signs Vital Sign Reading Time Taken Comments Blood Pressure 128/78 03/04/2022 9:35 AM EDT Pulse 77 03/04/2022 9:35 AM EDT Temperature 36.1 C (96.9 F) 03/04/2022 9:35 AM EDT Respiratory Rate 18 03/04/2022 9:35 AM EDT Oxygen Saturation 97% 03/04/2022 9:35 AM EDT Inhaled Oxygen Concentration - - Weight 102.2 kg (225 lb 3.2 oz) 03/04/2022 9:35 AM EDT Height 180.3 cm (5' 11 ) 03/04/2022 9:35 AM EDT Body Mass Index 31.41 03/04/2022 9:35 AM EDT Plan of Treatment Health Maintenance Due Date Last Done Comments Covid-19 Vaccine (#1) 1952 DEPRESSION SCREEN 1964 HEPATITIS C SCREENING 1970 DTAP/TDAP/TD (1 - Tdap) 1971 CHOLESTEROL SCREENING 1972 COLON CANCER SCREENING 2002 SHINGLES VACCINE (1 of 2) 2002 FALL RISK ASSESSMENT 2017 PNEUMOCOCCAL VACCINE (1 - PCV) 2017 BMI CHECK/ADVISE 09/12/2024 INFLUENZA (#1) 2025 Care Teams Histopathology Technician Relationship Specialty Start Date End Date Manoj Bowers MD PCP - General Internal Medicine 10/02/20
== END 2025-03-28 14:45 | disposition home or self-care (01) ==
LOC: HO.NEURO 14:44
PROVIDERS: PCP Physician Assistant; Visit Provider Internal Medicine Rheumatology
DX: M62.81 Muscle weakness (generalized) (principal); R94.131 Abnormal electromyogram [EMG]
CPT/HCPCS: 95886; 95913

== ENCOUNTER → 2025-03-28 14:47 | Outpatient (BNV) | payer MEDICARE, OTHER, SELFPAY | PROVIDERS: PCP Physician Assistant; Visit Provider Physical Medicine & Rehabilitation | DX: R53.1 Weakness (principal); R20.0 Anesthesia of skin; R22.43 Localized swelling, mass and lump, lower limb, bilateral | CPT/HCPCS: 95886; 95913 ==

== ENCOUNTER 2025-04-02 08:24 | Outpatient (REF) | payer MEDICARE, OTHER, SELFPAY ==
--- OUTSIDE RECORDS SUMMARY | 2025-04-02 08:36 | XMS_ITS | Clinical Summary ---
Author Organization [facility] ity Address [address] [place] [address] Care Team Providers Care Welder Tack Name Role Phone Manoj Bowers MD Primary [...] Panel) 08/21/2022 Colorectal Cancer Screening: Colonoscopy 08/21/2022 Falls Risk Assessment 08/21/2022 Hepatitis C Screening 08/21/2022 Social Influencers of Health Screening 08/21/2022 COVID-19 Vaccine (1 - 2023-2 5 season) 2024 Depression Screening 09/12/2024 Influenza Vaccine (#1) 2025 RSV Immunization Adult [...] age to complete this topic Care Teams Welder Tack Relationship Specialty Start Date End Date Manoj Bowers MD PCP - General Internal Medicine 10/02/20
--- OUTSIDE RECORDS SUMMARY | 2025-04-02 08:36 | XMS_ITS | Clinical Summary ---
Author Organization [facility] Address [address] [place] [address] Phone Care Team Providers Care Clay Processing Labourer Name Role Phone Albaro Nelson Primary Care Provider [phone] Allergies Active Allergy Reactions Criticality Noted Date Comments Bupropion Hcl 11/22/2023 Fatigue apathy, ineffective Itraconazole Rash Low 11/22/2023 Atomoxetine Fatigue Low 11/22/2023 Medications aspirin 81 MG EC tablet Take 1 tablet by mouth daily. Active dextroamphetami ne-amphetamine (ADDERALL) 20 mg Tab tablet Take 20 mg by mouth once. 2.5 tabs daily 11/17/2023 Active methocarbamoL (ROBAXIN) 750 MG tablet Take 750 mg by mouth. 10/17/2023 Active mirtazapine (REMERON) 45 MG tablet Take 45 mg by mouth nightly at bedtime. at bedtime. Active rosuvastatin (CRESTOR) 20 MG tablet Take 20 mg by mouth daily. Active sildenafiL (VIAGRA) 100 mg tablet 100 mg. Active valACYclovir (VALTREX) 1000 MG tablet 1,000 mg. 10/19/2023 Active predniSONE (DELTASONE) 5 MG tablet Take 1 tablet (5 mg total) by mouth daily with breakfast. 30 tablet 4 05/25/2024 Active predniSONE (DELTASONE) 1 MG tablet Take 4 tablets (4 mg total) by mouth daily with breakfast. 120 tablet 5 05/25/2024 Active Active Problems Problem Noted Date Diagnosed Date Polymyalgia rheumatica 12/26/2023 Assessment & Plan (02/19/2024 4:10 PM EDT): Polymyalgia rheumatica appears stable. He is still on 10 mg of prednisone. Since he has no symptoms have asked him to decrease his prednisone to 9 mg daily for 6 weeks and to lower his prednisone by 1 mg every 6 weeks. I sent in 2 prescriptions for a 5 mg tablet as well as for 1 mg tablets so he can taper his dose. Will check some labs today. Assessment & Plan (12/26/2023 6:38 PM EDT): His symptoms are very suggestive of polymyalgia rheumatica with proximal muscle pain and weakness. Will send him for repeat labs today to evaluate his inflammatory markers. I have asked him to continue with 10 mg of prednisone for the next 6 weeks and then to reduce the dose by 1 mg until his next appointment with me in 12 weeks. The plan is to reduce the dose by 1 mg every 6 weeks. Primary osteoarthritis involving multiple joints 12/26/2023 Assessment & Plan (02/19/2024 4:10 PM EDT): Osteoarthritis in multiple joints with no swelling. He can safely take Tylenol 650 mg as needed. Assessment & Plan (12/26/2023 6:38 PM EDT): Osteoarthritis in multiple joints contributing to his overall stiffness. I suggested he try Tylenol 650 mg as needed for pain. Family History Medical History Relation Comments Diabetes Daughter Coronary artery disease Father Diabetes Father Cancer Mother Dementia Mother Pneumonia Mother Diabetes Son Relation Status Comments Daughter Father Mother Son Social History Tobacco Use Types Packs/Day Years Used Date Smoking Tobacco: Former Cigarettes Smokeless Tobacco: Former Alcohol Use Standard Drinks/Week Comments Not Currently 0 (1 standard drink = 0.6 oz pur e alcohol) Education Answer Date Recorded Are you interested in more education? Not on soto e 08/15/2023 Are you concerned about learning? Not on file 08/15/2023 No 08/15/2023 No 08/15/2023 Digital Access Answer Date Recorded No 08/15/2023 No 08/15/2023 Reliable internet access at home? Not on file 08/15/2023 Device with a working camera? Not on file Sex and Gender Information Value Date Recorded Sex Assigned at Not on file Legal Sex Male 8:52 AM EST Gender Identity Not on file Sexual Orientation Not on file Last Filed Vital Signs Vital Sign Reading Time Taken Comments Blood Pressure 148/82 02/16/2024 1:26 PM EDT Pulse 104 11/22/2023 3:03 PM EDT Temperature - - Respiratory Rate - - Oxygen Saturation 94% 11/22/2023 3:03 PM EDT Inhaled Oxygen Concentration - - Weight 103.9 kg (229 lb) 02/16/2024 1:26 PM EDT Height 180.3 cm (5' 11 ) 02/16/2024 1:26 PM EDT Body Mass Index 31.94 02/16/2024 1:26 PM EDT Plan of Treatment Health Maintenance Due Date Last Done Comments LIPID PANEL 1952 DEPRESSION SCREENING 1964 SMOKING Hx and SMOKELESS TOBACCO SCREENING 1965 HEPATITIS C SCREENING 1970 COLOGUARD 1997 COLONOSCOPY 1997 COLORECTAL CANCER SCREENING 1997 FIT TEST 1997 FOBT 1997 SIGMOIDOSCOPY 1997 VIRTUAL COLONOSCOPY 1997 PNEUMOCOCCAL VACCINES (50+ years) (1 of 1 - PCV) 2002 ABDOMINAL AORTIC ANEURYSM (AAA) SCREENING 2017 ZOSTER VACCINES (2 of 2) 05/05/2022 03/10/2022 COVID-19 VACCINE ( - season) 2024 09/26/2023, 05/21/2022, 07/30/2021, Additional history exists RSV VACCINE (1 - 1-dose 75+ series) 2027 Adult Td,Tdap Booster 12/17/2031 12/16/2021 HEPATITIS A VACCINES Aged Out No long er eligible based on patient's age to complete this topic HIB VACCINES Aged Out No longer eligi ble based on patient's age to complete this topic MENINGOCOCCAL VACCINES (ACWY) Aged Out No longer eligible based on patient's age to complete this topic MENINGOCOCCAL VACCINES (B) Aged Out N o longer eligible based on patient's age to complete this topic Medical Devices Not on file Insurance MEDICARE PART A & B [employer] MEDICARE SUPPLEMENT MEDICARE PART A & B [id number] EXTENSION MEDICARE SUPPLEMENT MEDICARE PART A & B [facility] MEDICARE SUPPLEMENT MEDICARE PART A & B [facility] EXTENSION MEDICARE SUPPLEMENT MEDICARE PART A & B [facility] EXTENSION MEDICARE SUPPLEMENT MEDICARE PART A & B [facility] EXTENSION MEDICARE SUPPLEMENT Care Teams Clay Processing Labourer Relationship Specialty Start Date End Date Albaro Nelson PA [address] [place] [id number] PCP - General Physician Classified Copy Control Clerk 08/08/23 Additional Source Comments The information contained in this document represents components of the legal health record. It is not the complete legal health record.[facility]
[2025-04-02 13:56] LABS: Hemoglobin A1C 206.2194 umol/L; Total Hemoglobin (HGBA1C) 4218.8769 umol/L
[2025-04-02 14:57] LABS: Folate 13.4 ng/mL (> or = 4.0); Vitamin B12 782 pg/mL (200-900)
[2025-04-02 15:07] LABS: Alanine Aminotransferase 33 U/L (0-40); Aspartate Amino Transferase 33 U/L (5-37)
[2025-04-02 15:11] LABS: Ferritin 191 ng/mL (20-250)
[2025-04-05 22:18] LABS: Proteinase 3 PR3 Antibodies <1.0 AI
== END 2025-04-02 08:25 | disposition home or self-care (01) ==
LOC: HO.HKASLDS 08:24
PROVIDERS: Physician Assistant Medical; Visit Provider Internal Medicine Rheumatology
DX: G47.19 Other hypersomnia (principal); R53.83 Other fatigue; G47.9 Sleep disorder, unspecified; M19.90 Unspecified osteoarthritis, unspecified site; Z79.899 Other long term (current) drug therapy
CPT/HCPCS: 36415; 82085; 82550; 82607; 82728; 82746; 83036; 83090; 83921; 84443; 84450; 84460; 85652; 86021; 86140

== ENCOUNTER 2025-04-09 09:06 | Outpatient (REF) | payer MEDICARE, OTHER, SELFPAY ==
--- OUTSIDE RECORDS SUMMARY | 2025-04-09 11:01 | XMS_ITS | Clinical Summary ---
Author Organization [facility] Address [address] [place] [address] Care Team Providers Care Dishcloth Folder Name Role Phone Manoj Bowers MD Primary [...] CHECK/ADVISE 09/12/2024 INFLUENZA (#1) 2025 Care Teams Dishcloth Folder Relationship Specialty Start Date End Date Manoj Bowers MD PCP - General Internal Medicine 10/02/20
[2025-04-09 13:31] LABS: MANUAL DIFF FLAG NO
[2025-04-09 13:36] LABS: Hematocrit 47.3 % (42.0-52.0); Hemoglobin 16.3 g/dl (14.0-18.0); Imm Gran Abs Auto 0.04 X10*3/uL (0.00-0.03); Imm Gran Pct Auto 0.5 % (0.0-0.4); Lymphocytes Absolute Auto 0.9 X10*3/uL (1.2-4.9); Mean Corpuscular HGB Conc 34.5 g/dl (31.0-36.0); Mean Corpuscular Hemoglobin 31.9 pg (27.0-33.0); Mean Corpuscular Volume 92.6 fL (80.0-98.0); NRBC Abs Auto 0.000 X10*3/uL (0.0-0.012); NRBC Pct Auto 0.0 /100WBC (0.0-0.2); Platelet Count 165 X10*3/uL (160-400); Red Blood Count 5.11 X10*6/uL (4.60-5.80); White Blood Count 7.6 X10*3/uL (4.8-10.8)
[2025-04-09 13:57] LABS: Alanine Aminotransferase 30 U/L (0-40); Aspartate Amino Transferase 31 U/L (5-37); Estimated Glomerular Filt Rate > 60
== END 2025-04-09 09:07 | disposition home or self-care (01) ==
LOC: HO.HKASLDS 09:06
PROVIDERS: Visit Provider Internal Medicine Rheumatology
DX: M62.81 Muscle weakness (generalized) (principal); M35.3 Polymyalgia rheumatica; R79.82 Elevated C-reactive protein (CRP); G62.9 Polyneuropathy, unspecified; E11.9 Type 2 diabetes mellitus without complications; M19.90 Unspecified osteoarthritis, unspecified site; R74.8 Abnormal levels of other serum enzymes; Z79.52 Long term (current) use of systemic steroids; Z79.899 Other long term (current) drug therapy; Z79.84 Long term (current) use of oral hypoglycemic drugs
CPT/HCPCS: 36415; 82085; 82306; 82550; 82565; 84450; 84460; 85025; 85652; 86140; 99212

== ENCOUNTER 2025-04-09 09:06 | Outpatient (AMB) | payer MEDICARE, OTHER, SELFPAY ==
[2025-04-09 09:05] VITALS: BP 114/70; PULSE 92; O2SAT 98; BMI 31.1
--- NOTE | 2025-04-09 09:05 | MHC.OFFVIS ---
Vital Signs 04/09/25 09:05 Height 5 ft 11 in Weight 223 lb 2 oz BMI 31.1 BP 114/70 Pulse 92 Pulse Source Pulse Oximeter Pulse Oximetry (%) 98 Oxygen Delivery Method Room Air Intake Visit Reasons: 2 month follow up Intake Note: Patient is here for follow up on PMR. Accompanied by: Self / Same As Patient Allergies No Known Allergies Allergy (Verified 04/09/25 09:05) HPI HPI 2 month follow up: Details: He feels well. 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 He recently returned 2 weeks ago from a trip from [place]. After EMG he had increased weakness. During that time he was also having workup done for other doctors with labs and appointments. He denies having any muscle pain at this time. No new joint swelling. He has noticed less swelling in general in his joints. No recent infections. He was recently put on metformin due to diabetes (hemoglobin A1c 6.6). 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 This is an abnormal study. 2. 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 3. There is no electrodiagnostic evidence for entrapment neuropathy or radiculopathy. No evidence for myopathic disorder or motor neuron disorder Assessment & Plan Assessment & Plan (1) Muscle weakness: Comment: With proximal right lower extremity weakness on exam, inflammatory arthritis affecting hands, mild elevation in muscle enzymes, mild elevation in CRP on prednisone 5mg qd. Labs on higher dose of prednisone from 5 mg daily to 7.5 mg daily shows improvement of muscle enzyme CK and patient is more functional able to work with personal care home administrator and exercise regularly. He does not have muscle weakness on exam. There is a possibility that he may have overlap syndrome with seronegative RA (-RU/RF/CCP/STOCK SORTER/Sm) and idiopathic inflammatory myositis (negative myositis specific panel). However, he was treated for PMR and has remained on low-dose prednisone for 2 years. Workup with MRI right femur w/ and w/o contrast and bilateral upper and lower extremity EMG did not reveal myositis. EMG revealed polyneuropathy but patient is asymptomatic. We discussed next steps in treatment with adding a steroid sparing agent methotrexate. Discussed side effects, benefits and drug monitoring. Methotrexate is my agent of choice to target inflammatory arthritis, the possibility of underlying myositis and it is also used as a steroid sparing agent with relapsing PMR. Patient agrees with plan. History: Initially he presented as PMR 05/2023 with weakness in his thighs/pain in groins progressing to bilateral shoulder pain. ESR was 81 mm/hr. He was diagnosed with PMR and treated for with prednisone 20mg qd tapered slowly but has relapsed when prednisone was decreased to 5 mg daily with development of inflammatory arthritis, lower extremity weakness R>L. Code(s): M62.81 - Muscle weakness (generalized) Category: Medical Plan: Decrease prednisone to 6 mg daily. Plan to reduce prednisone to 5mg at follow-up visit I have ordered labs prior to starting methotrexate. After lab results are back, I will start methotrexate 12.5 mg once weekly and folic acid 1 mg daily. He will then need labs 4 weeks after starting methotrexate with CBC, creatinine, AST and ALT. Information on methotrexate given to patient. He will take calcium 600 mg and vitamin-D 20 mcg daily. We discussed increasing dietary intake of dairy products. He will need a bone density if he has not had one in the last 2 years. Vitamin-D level ordered to today's labs I will monitor muscle enzymes Diabetes management per PCP. Likely long-term glucocorticoid treatment has contributed to diabetes as patient was prediabetic in the past. Return to clinic 3 months (2) Other alf (current) drug therapy: Comment: Long-term use of glucocorticoid therapy Code(s): Z79.899 - Other alf (current) drug therapy Category: Medical Plan: See above (3) PMR (polymyalgia rheumatica): Comment: Initial diagnosed 05/2023 with relapse disease when prednisone was tapered to 5 mg daily. Code(s): M35.3 - Polymyalgia rheumatica Category: Medical Plan: See above (4) Inflammatory arthritis: Code(s): M19.90 - Unspecified osteoarthritis, unspecified site Category: Medical Plan: see above Orders: Orders Alanine Aminotransferase Today M19.90 - Unspecified osteoarthritis, unspecified site, M35.3 - Polymyalgia rheumatica, Z79.899 - Other ferry terminal agent (current) drug therapy C Reactive Protein Today M19.90 - Unspecified osteoarthritis, unspecified site, M35.3 - Polymyalgia rheumatica, Z79.899 - Other alf (current) drug therapy Erythrocyte Sedimentation Rate Today M19.90 - Unspecified osteoarthritis, unspecified site, M35.3 - Polymyalgia rheumatica, Z79.899 - Other ferry terminal agent (current) drug therapy Aldolase Today M1.90 - Unspecified osteoarthritis, unspecified site, M35.3 - Polymyalgia rheumatica Alanine Aminotransferase 4 Weeks M19.90 - Unspecified osteoarthritis, unspecified site, M35.3 - Polymyalgia rheumatica, Z79.899 - Other ferry terminal agent (current) drug therapy Aspartate Amino Transferase 4 Weeks M19.90 - Unspecified osteoarthritis, unspecified site, M35.3 - Polymyalgia rheumatica, Z79.899 - Other alf (current) drug therapy Erythrocyte Sedimentation Rate 4 Weeks M19.90 - Unspecified osteoarthritis, unspecified site, M35.3 - Polymyalgia rheumatica, Z79.899 - Other alf (current) drug therapy Aldolase 1 Month M35.3 - Polymyalgia rheumatica, R74.8 - Abnormal levels of other serum enzymes Complete Blood Count Auto Diff Today M19.90 - Unspecified osteoarthritis, unspecified site, M35.3 - Polymyalgia rheumatica Aspartate Amino Transferase Today M19.90 - Unspecified osteoarthritis, unspecified site, M35.3 - Polymyalgia rheumatica, Z79.899 - Other ferry terminal agent (current) drug therapy Creatinine Today M19.90 - Unspecified osteoarthritis, unspecified site, M35.3 - Polymyalgia rheumatica, Z79.899 - Other ferry terminal agent (current) drug therapy Creatine Kinase Total Today M19.90 - Unspecified osteoarthritis, unspecified site, M35.3 - Polymyalgia rheumatica Vitamin D 25-OH Total Today - Unspecified osteoarthritis, unspecified site, M35.3 - Polymyalgia rheumatica Complete Blood Count Auto Diff 4 Weeks - Unspecified osteoarthritis, unspecified site, M35.3 - Polymyalgia rheumatica Creatinine 4 Weeks - Unspecified osteoarthritis, unspecified site, M35.3 - Polymyalgia rheumatica, Z79.899 - Other ferry terminal agent (current) drug therapy C Reactive Protein 4 Weeks - Unspecified osteoarthritis, unspecified site, M35.3 - Polymyalgia rheumatica, Z79.899 - Other ferry terminal agent (current) drug therapy Creatine Kinase Total Today M35.3 - Polymyalgia rheumatica, R74.8 - Abnormal levels of other serum enzymes Medications: New prednisone Take with food 6 mg (6 x 1 mg) PO DAILY 180 tabs 2RF 30 days methotrexate sodium Labs due in 4 weeks 12.5 mg (5 x 2.5 mg) PO QWEEK 20 tabs 0RF 4 weeks folic acid 1 mg PO DAILY 30 tabs 11RF Coding Level of Care Code Est Pt Level 4 (76881) Complex EM visit Add On G2211 Diagnoses Muscle weakness M62.81 Other alf (current) drug therapy Z79.899 PMR (polymyalgia rheumatica) M35.3 Inflammatory arthritis
--- OUTSIDE RECORDS SUMMARY | 2025-04-09 09:32 | XMS_ITS | Clinical Summary ---
Author Organization [facility] Address [address] [place] [phone] Phone Care Team Providers Care Senior Accountant Analyst Name Role Phone Albaro Nelson Primary Care Provider [phone] Allergies Active Allergy Reactions Criticality Noted Date [...] file Insurance MEDICARE PART A & B Se[employer] MEDICARE SUPPLEMENT MEDICARE PART A & B [employer] EXTENSION MEDICARE SUPPLEMENT MEDICARE PART A & B [facility] MEDICARE SUPPLEMENT MEDICARE PART A & B [facility] EXTENSION MEDICARE SUPPLEMENT MEDICARE PART A & B [facility] [employer] MEDICARE SUPPLEMENT MEDICARE PART A & B [facility] [employer] MEDICARE SUPPLEMENT Care Teams Senior Accountant Analyst Relationship Specialty Start Date End Date Albaro Nelson PA [address] [place] [id number] PCP - General Physician Systems Protection Technician 08/08/23 Additional Source Comments The information contained in this document represents components of the legal health record. It is not the complete legal health record.[facility]
--- OUTSIDE RECORDS SUMMARY | 2025-04-09 09:32 | XMS_ITS | Clinical Summary ---
Author Organization [facility] ity Address [address] [place] [address] Care Team Providers Care Patternator Name Role Phone Manoj Bowers MD Primary [...] age to complete this topic Care Teams Patternator Relationship Specialty Start Date End Date Manoj Bowers MD PCP - General Internal Medicine 10/02/20
== END 2025-04-09 10:05 | disposition home or self-care (01) ==
LOC: HO.RHES 09:06
PROVIDERS: Visit Provider Internal Medicine Rheumatology
DX: M62.81 Muscle weakness (generalized) (principal); Z79.899 Other long term (current) drug therapy; M35.3 Polymyalgia rheumatica; M19.90 Unspecified osteoarthritis, unspecified site
CPT/HCPCS: 99214; G2211

== ENCOUNTER 2025-04-15 07:57 | Outpatient (AMB) | payer MEDICARE, OTHER, SELFPAY ==
--- OUTSIDE RECORDS SUMMARY | 2025-04-15 08:01 | XMS_ITS | Clinical Summary ---
Author Organization [facility] Address [address] [place] [phone] Phone Care Team Providers Care Airbrush Artist Photography Name Role Phone Albaro Nelson Primary Care Provider [phone] Allergies Active Allergy Reactions Criticality Noted Date [...] file Insurance MEDICARE PART A & B [employer] MEDICARE SUPPLEMENT MEDICARE PART A & B [employer] EXTENSION MEDICARE SUPPLEMENT MEDICARE PART A & B [facility] MEDICARE SUPPLEMENT MEDICARE PART A & B [facility] EXTENSION MEDICARE SUPPLEMENT MEDICARE PART A & B [facility] EXTENSION MEDICARE SUPPLEMENT MEDICARE PART A & B [facility] EXTENSION MEDICARE SUPPLEMENT Care Teams Airbrush Artist Photography Relationship Specialty Start Date End Date Albaro Nelson PA [address] [place] [id number] PCP - General Physician Child Protective Services Specialist 08/08/23 Additional Source Comments The information contained in this document represents components of the legal health record. It is not the complete legal health record.[facility]
--- OUTSIDE RECORDS SUMMARY | 2025-04-15 08:01 | XMS_ITS | Clinical Summary ---
Author Organization [facility] ity Address [address] [place] [address] Care Team Providers Care Supervisor Metal Furniture Assembly Name Role Phone Manoj Bowers MD Primary [...] age to complete this topic Care Teams Supervisor Metal Furniture Assembly Relationship Specialty Start Date End Date Manoj Bowers MD PCP - General Internal Medicine 10/02/20
--- OUTSIDE RECORDS SUMMARY | 2025-04-15 08:01 | XMS_ITS | Clinical Summary ---
Author Organization [facility] Address [address] [place] [address] Care Team Providers Care Radiator Core Tester Name Role Phone Manoj Bowers MD Primary [...] CHECK/ADVISE 09/12/2024 INFLUENZA (#1) 2025 Care Teams Radiator Core Tester Relationship Specialty Start Date End Date Manoj Bowers MD PCP - General Internal Medicine 10/02/20
--- NOTE | 2025-04-15 08:05 | A.OFFVIS_ITS ---
Vital Signs 04/15/25 08:07 Height 5 ft 11 in Weight 227 lb 4 oz BMI 31.7 BP 128/78 Blood Pressure Location Lt brachial Position Sitting Pulse 86 Pulse Source Pulse Oximeter Pulse Oximetry (%) 98 Oxygen Delivery Method Room Air Intake Visit Reasons: 3m follow up Intake Note: Patient presents follow up CARMENCITA. Labs/HST in chart(AHI-20, OLIVIA- 80%. Trial APAP 5-20cm). Allergies No Known Allergies Allergy (Verified 04/15/25 08:08) HPI Comments Details: 74 year old male with h/o PMR here for an evaluation of sleep. HST c/w AHI 20/hr and oxygen desaturation to 80%. He washes his mask and hoses, changes filters and fills his reservoir with water daily. Today pt states he feels chronically fatigued and unable to focus despite going to bed at 9pm and getting up at 6am, sometimes he averages 12 hours of sleep. He continues to holds his breath at night, and has tried the cpap machine, oral mandibular appliances and Provent nose bandages which worked well for him at one point. He was diagnosed with PMR and started on Prednisone now 7.5mg PO daily as this has helped immensely with his proximal muscle pain. Will also start methotrexate taper, will discontinue prednisone. He denies morning headaches, parasomnias and has a baseline of RLS symptoms with jittery legs. He has chronic proximal muscle pain, difficulty getting up out of a chair, goes to PT regularly and is being followed by Rheumatology. He has taken adderall for more than 10 years and says he can focus better, loses concentration easily without it. 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 He is trying to wean himself off of mirtazapine [facility] now on 15mg po daily. His mood is good, he has no difficulty with his diet and is trying to lose weight. [facility] Medical History Excessive daytime sleepiness PMR (polymyalgia rheumatica) Excessive daytime sleepiness CARMENCITA (obstructive sleep apnea) Other custodial (current) drug therapy Inflammatory arthritis Greater trochanteric bursitis of both hips Muscle weakness Infrapatellar bursitis of right knee Family History Father Type I diabetes mellitus Mother Breast cancer Son Type I diabetes mellitus Physical Exam Vital Signs: Last Vital Signs Pulse 86 04/15/25 08:07 BP 128/78 04/15/25 08:07 Pulse Ox 98 04/15/25 08:07 Oxygen Delivery Method Room Air 04/15/25 08:07 BMI result Body Mass Index 31.7 Const General: cooperative, comfortable and no acute distress Orientation/consciousness: patient oriented x3 HEENT Face and sinus: Yes face symmetric Teeth and gingiva: other ([place] score 3) Eyes Pupils: Equal, round and reactive pupils present Neck Neck: Yes full ROM Resp Effort & Inspection: normal respiratory effort and able to speak in complete sentences Neuro General: patient oriented x3 and moves all extremities Cranial nerves: Yes Facial sensation intact/muscles of mastication intact, Yes Equal, round and reactive pupils present, Yes Midline tongue present, Yes Ability to bilaterally rotate head present and Yes Ability to bilaterally elevate shoulders present Cognition (Neuro): normal cognition Gait exam (Neuro): Normal gait present Motor exam (neuro): Abnormal motor strength present Psych Appearance: grossly normal Thought process: Normal thought process present Thought content: Normal thought content present Results Reviewed Results Reviewed: HST c/w AHI 20/hr and oxygen desaturation to 80%. He washes his mask and hoses, changes filters and fills his reservoir with water daily. Assessment & Plan Assessment & Plan (1) Excessive daytime sleepiness: Comment: continue cpap use Code(s): G47.19 - Other hypersomnia Category: Medical (2) CARMENCITA (obstructive sleep apnea): Code(s): G47.33 - Obstructive sleep apnea (adult) (pediatric) Category: Medical (3) Fatigue: Code(s): R53.83 - Other fatigue Category: Medical Qualifiers: Fatigue type: chronic, unspecified Qualified Code(s): R53.82 - Chronic fatigue, unspecified Plan CARMENCITA : HST c/w AHI of 20 and O2 desaturation to 80%. Continue using CPAP 5- [id number]. Fatigue chronic, PMR will start methotrexate taper, and taper off prednisone per rheum. A1c is elevated, all other labs normal. F/u in 6 months. Patient Instructions: Sleep Hygiene provided: set a scheduled bedtime and wake time to help regulate the circadian rhythm and balance the release of pituitary hormones. Sleep in a dark room, temperatures below 68 degrees, and no devices n bed. Limit caffeinated products 6 hours prior to bed, and limit fluids 2-4 hours prior to bed. Gentle night yoga, diffusing essential oils, and playing soft music can be relaxing. Coding Level of Care Code Est Pt Level 4 (86251) Diagnoses Excessive daytime sleepiness G47.19 CARMENCITA (obstructive sleep apnea) G47.33 Chronic fatigue R53.82 Fatigue type: chronic, unspecified Time Spent (min) 30 Comment carmencita compliance requested
[2025-04-15 08:07] VITALS: BP 128/78; PULSE 86; O2SAT 98; BMI 31.7
== END 2025-04-15 08:44 | disposition home or self-care (01) ==
LOC: HO.HSMS 07:58
PROVIDERS: PCP Physician Assistant; Visit Provider Physician Assistant Medical
DX: G47.19 Other hypersomnia (principal); G47.33 Obstructive sleep apnea (adult) (pediatric); R53.82 Chronic fatigue, unspecified
CPT/HCPCS: 99214

== ENCOUNTER → 2025-04-15 07:57 | Outpatient (BNVA) | payer MEDICARE, OTHER, SELFPAY | PROVIDERS: PCP Physician Assistant; Visit Provider Physician Assistant Medical | DX: G47.19 Other hypersomnia (principal); G47.33 Obstructive sleep apnea (adult) (pediatric); R53.82 Chronic fatigue, unspecified | CPT/HCPCS: 99212 ==

== ENCOUNTER 2025-05-15 08:37 | Outpatient (REF) | payer MEDICARE, OTHER, SELFPAY ==
--- OUTSIDE RECORDS SUMMARY | 2025-05-15 09:06 | XMS_ITS | Clinical Summary ---
Author Organization [facility] ity Address [address] [place] [address] Care Team Providers Care Bank Runner Name Role Phone Manoj Bowers MD Primary [...] age to complete this topic Care Teams Bank Runner Relationship Specialty Start Date End Date Manoj Bowers MD PCP - General Internal Medicine 10/02/20
--- OUTSIDE RECORDS SUMMARY | 2025-05-15 09:06 | XMS_ITS | Clinical Summary ---
Author Organization [facility] Address [address] [place] [id number] Phone Care Team Providers Care Reinsurance Clerk Name Role Phone Albaro Nelson Primary Care Provider [phone] Allergies Active Allergy Reactions Criticality Noted Date [...] file Insurance MEDICARE PART A & B [employer] MEDICARE SUPPLEMENT MEDICARE PART A & B [employer] MEDICARE SUPPLEMENT MEDICARE PART A & B [facility] MEDICARE SUPPLEMENT MEDICARE PART A & B [facility] MEDIC[facility] SUPPLEMENT Member Subscriber Plan / Payer ([facility] 03/12/2018-) Name:Alonso Mohr Relation to Subscriber:Self Name:Alonso Mohr Payer ID:[id number] (NAIC) Type:Indemnity Address: [address] [place] [id number] MEDICARE PART A & B [facility] MEDICARE SUPPLEMENT MEDICARE PART A & B [facility] MEDICARE SUPPLEMENT Care Teams Reinsurance Clerk Relationship Specialty Start Date End Date Albaro Nelson PA [address] [place] [id number] PCP - General Physician Manager Land 08/08/23 Additional Source Comments The information contained in this document represents components of the legal health record. It is not the complete legal health record.[facility]
[2025-05-15 13:02] LABS: MANUAL DIFF FLAG NO
[2025-05-15 13:10] LABS: Hematocrit 46.5 % (42.0-52.0); Hemoglobin 15.6 g/dl (14.0-18.0); Imm Gran Abs Auto 0.04 X10*3/uL (0.00-0.03); Imm Gran Pct Auto 0.7 % (0.0-0.4); Lymphocytes Absolute Auto 1.1 X10*3/uL (1.2-4.9); Mean Corpuscular HGB Conc 33.5 g/dl (31.0-36.0); Mean Corpuscular Hemoglobin 31.9 pg (27.0-33.0); Mean Corpuscular Volume 95.1 fL (80.0-98.0); NRBC Abs Auto 0.000 X10*3/uL (0.0-0.012); NRBC Pct Auto 0.0 /100WBC (0.0-0.2); Platelet Count 171 X10*3/uL (160-400); Red Blood Count 4.89 X10*6/uL (4.60-5.80); White Blood Count 5.8 X10*3/uL (4.8-10.8)
[2025-05-15 13:34] LABS: Alanine Aminotransferase 32 U/L (0-40); Aspartate Amino Transferase 30 U/L (5-37); Estimated Glomerular Filt Rate > 60
== END 2025-05-15 08:38 | disposition home or self-care (01) ==
LOC: HO.HKASLDS 08:37
PROVIDERS: Visit Provider Internal Medicine Rheumatology
DX: M35.3 Polymyalgia rheumatica (principal); R74.8 Abnormal levels of other serum enzymes; M19.90 Unspecified osteoarthritis, unspecified site; Z79.899 Other long term (current) drug therapy
CPT/HCPCS: 36415; 82085; 82550; 82565; 84450; 84460; 85025; 85652; 86140

== ENCOUNTER 2025-07-17 09:50 | Outpatient (AMB) | payer MEDICARE, OTHER, SELFPAY ==
--- OUTSIDE RECORDS SUMMARY | 2025-07-16 12:16 | XMS_ITS | Continuity of Care Document ---
Author Organization [facility] Address [address] [place] [address]- Care Team Providers Care System Programmer Name Role Phone Albaro Camejo Primary Care Physician Encounter [facility] Date(s): 07/16/25 - 07/16/[address] [address]- Discharge Disposition: A-D/C Home Attending Physician: Jean Claude Leonard MD Admitting Physician: Jean Claude Leonard MD Referring Physician: Jean Claude Leonard MD Encounter Type: Disch Daystay Allergies, Adverse Reactions, Alerts No Known Allergies Medications acetaminophen 325 mg oral tablet 650 mg, By Mouth, Every 6 hours, PRN, May take OTC not to exceed 3000 mg/day, Refills 0, Maintenance, Pain , Mild, 01/20/23 8:55:00 AM EDT, Partial fill upon patient request if the prescription is fora schedule II opioid drug. Start Date: 01/20/23 Status: Ordered Medication Dispense Status: Completed Total Allowed Fills: 1 Fills Dispensed: 0 amphetamine-dextroamphetamine 20 mg oral tablet 1 tablet = 20 mg, By Mouth, 3 times a day, 20mg in Am, 20 mg mid morning, 10mg early afternoon, # 90 tablet, 0 Refills, Maintenance, 01/04/23 1:53:00 PM EDT, Tablet, Partial fill upon patient request if the prescription is for a schedule II opioid drug. Start Date: 01/04/23 Status: Ordered Medication Dispense Status: Completed Quantity: 90.0 Unit: tablet Total Allowed Fills: 1 Fills Dispensed: 0 aspirin 81 mg oral tablet 1 tablet = 81 mg, By Mouth, Daily, 0 Refills, Maintenance, 05/25/23 4:01:00 PM EDT, Partial fill upon patient request if the prescription is for a schedule II opioid drug. Start Date: 05/25/23 Status: Ordered Medication Dispense Status: Completed Total Allowed Fills: 1 Fills Dispensed: 0 calcium-vitamin D 600 mg-400 intl units oral tablet 1 tablet, By Mouth, 2 times a day, # 60 tablet, 0 Refills, Maintenance, 04/22/25 12:41:00 PM EDT, Tablet, Partial fill upon patient request if the prescription is for a schedule II opioid drug. Start Date: 04/22/25 Status: Ordered Medication Dispense Status: Completed Quantity: 60.0 Unit: tablet Total Allowed Fills: 1 Fills Dispensed: 0 folic acid 1 mg oral tablet 1 mg, 1, tablet, By Mouth, Daily, Refills 0, Maintenance, 04/22/25 12:41:00 PM EDT, Partial fill upon patient request if the prescription is for a schedule II opioid drug. Start Date: 04/22/25 Status: Ordered Medication Dispense Status: Completed Total Allowed Fills: 1 Fills Dispensed: 0 metFORMIN 500 mg oral tablet, extended release 1 tablet = 500 mg, By Mouth, Daily at supper, # 30 tablet, 0 Refills, Maintenance, 10/16/24 11:29:00 AM EST, ER Tablet, Partial fill upon patient request if the prescription is for a schedule II opioiddrug. Start Date: 10/16/24 Status: Ordered Medication Dispense Status: Completed Quantity: 30.0 Unit: tablet Total Allowed Fills: 1 Fills Dispensed: 0 Methotrexate 12.5 mg onTUESDAY, 0 Refills, Maintenance, 04/22/25 12:39:00 PM EDT, Partial fill upon patient request if the prescription is for a schedule II opioid drug. Start Date: 04/22/25 Status: Ordered Medication Dispense Status: Completed Total Allowed Fills: 1 Fills Dispensed: 0 mirtazapine 30 mg oral tablet 1 tablet = 30 mg, By Mouth, Daily at bedtime, # 90 tablet, 0 Refills, Maintenance, 10/16/24 11:24:00 AM EST, Tablet, Partial fill upon patient request if the prescription is for a schedule II opioid drug. Start Date: 10/16/24 Status: Ordered Medication Dispense Status: Completed Quantity: 90.0 Unit: tablet Total Allowed Fills: 1 Fills Dispensed: 0 PEG-3350 with Electrolytes (Eqv-GoLYTELY) oral powder for reconstitution See Instructions, As directed by office ok to substitute for any gallon prep, # 2 each, 0 Refills, Maintenance, 05/24/24 5:43:00 PM EDT, [facility] #[id number], Patient needs TWO (2) gallons, As directed by office; ok to substitute for any gallon prep, 180, cm, 05/22/24 9:32:00 EDT, Height, 97.8, kg, 10/18/23 7:45:00 EST, Dry Weight Start Date: 05/24/24 Status: Ordered Medication Dispense Status: Completed Quantity: 2.0 Unit: each Total Allowed Fills: 1 Fills Dispensed: 0 PEG-3350 with Electrolytes (Eqv-GoLYTELY) oral powder for reconstitution See Instructions, ok to substitute for any gallon prep, # 1 each, 0 Refills, Maintenance, 07/22/23 12:48:00 PM EST, [facility] #[id number], Partial fill upon patient request if the prescription is for a schedule II opioid drug., ok to substitute for any gallon prep, 180, cm, 05/25/23 16:02:00 EDT, Height, 102.6, kg, 01/19/23 10:01:00 EDT, Dry Weight Start Date: 07/22/23 Status: Ordered Medication Dispense Status: Completed Quantity: 1.0 Unit: each Total Allowed Fills: 1 Fills Dispensed: 0 PredniSONE = 6 mg, By Mouth, Daily in AM, 0 Refills, Maintenance, 10/16/24 11:28:00 AM EST, Partial fill upon patient request if the prescription is for a schedule II opioid drug. Start Date: 10/16/24 Status: Ordered Medication Dispense Status: Completed Total Allowed Fills: 1 Fills Dispensed: 0 rosuvastatin 20 mg oral tablet 1 tablet = 20 mg, By Mouth, Daily, # 30 tablet, 0 Refills, Maintenance, 01/22/20 10:40:00 AM EDT, Tablet Start Date: 01/22/20 Status: Ordered Medication Dispense Status: Completed Quantity: 30.0 Unit: tablet Total Allowed Fills: 1 Fills Dispensed: 0 valACYclovir 500 mg oral tablet 500 mg, 1, tablet, By Mouth, Daily at bedtime, Refills 0, Maintenance, 10/16/24 11:23:00 AM EST, Partial fill upon patient request if the prescription is for a schedule II opioid drug. Start Date: 10/16/24 Status: Ordered Medication Dispense Status: Completed Total Allowed Fills: 1 Fills Dispensed: 0 Problem List Condition Confirmation Course Effective Dates Status H ealth Status Informant Anxiety Confirmed Active ADD (attention deficit disorder) Confirmed Active Claudication Confirmed Active Depression Confirmed Active HLD (hyperlipidemia) Confirmed Active Cancer of prostate Confirmed Active Obese class I Confirmed Active CARMENCITA (obstructive sleep apnea) Confirmed Active Primary osteoarthritis of left knee Confirmed Active Pad Confirmed Active Tubular adenoma of colon 1 Confirmed 10/28/22 Active 1repeat screening colonoscopy in 2023 Vital Signs Most recent to oldest [Reference Range]: 1 2 3 Height 180 cm (07/16/25 10:41 AM) Oxygen Saturation [94-100 %] 97 % (07/16/25 11:51 AM) 97 % (07/16/25 11:45 AM) 97 % (07/16/25 11:41 AM) Pulse Rate [55-90 bpm] 91 bpm *H* (07/16/25 10:41 AM) Blood Pressure [90-138/55-84 mm Hg] 139/79mm Hg *H* (07/16/25 11:51 AM) 122/82mm Hg (07/16/25 11:45 AM) 107/66mm Hg (07/16/25 11:41 AM) Respiratory Rate [16-30 br/min] 19 br/min (07/16/25 11:51 AM) 20 br/min (07/16/25 11:45 AM) 28 br/min (07/16/25 11:41 AM) Temperature [96.8-100.4 DegF] 98.9 DegF (07/16/25 11:35 AM) 99 DegF (07/16/25 10:41 AM) Liters per Minute 6 L/min (07/16/25 11:36 AM) Mode of Delivery (Oxygen) Room air (07/16/25 11:51 AM) Room air (07/16/25 11:45 AM) Room air (07/16/25 11:41 AM) Blood pressure sites Arm, left (07/16/25 10:41 AM) Temperature Route Temporal (07/16/25 11:35 AM) Temporal (07/16/25 10:41 AM) Dry Weight 105 kg (07/16/25 10:41 AM) Dry Weight Obtained Via Standing scale (07/16/25 10:41 AM) Social History Social History Type Response Sexual Gender identity: Darlene ntifies as male. Smoking Status Former smoker, quit more than 30 days ago entered on: 01/04/23 Sex Sex Representation Male (finding) Patient Care team information Care Team Personnel Name: Albaro Camejo Position: [facility] Associate Professional Member Role: PCP Address: [address] [place] [address] Telecom: Name: Bethany Murrell RN Position: [facility] RN Member Role: Primary Care Nurse Care Team Related Persons Name: VALERIDONY Kirby Insurance Providers Guarantor name: LOUISE MARÍA Health Plan Information #: 1 Payer: MEDICARE B Payer Identifier: JIMMY Member Number: [id number] Group Number: [id number] Subscriber Identifier: [id number] Relationship to Subscriber: self Coverage Type: NA Coverage Verification Date: NA Telecom: NA Address: Health Plan Information #: 2 Payer: [facility] [employer] Payer Identifier: JIMMY Member Number: [id number] Group Number: [id number] Subscriber Identifier: [id number] Relationship to Subscriber: self Coverage Type: Commercial Indemnity Coverage Verification Date: Telecom: Address:
[2025-07-17 09:56] VITALS: BP 108/80; PULSE 61; O2SAT 100; BMI 32.0
--- NOTE | 2025-07-17 09:56 | A.OFFVIS_ITS ---
Vital Signs 07/17/25 09:56 Height 5 ft 11 in Weight 229 lb 8.019 oz BMI 32.0 BP 108/80 Blood Pressure Location Lt brachial Position Sitting Pulse 61 Pulse Source Pulse Oximeter Pulse Oximetry (%) 100 Oxygen Delivery Method Room Air Intake Visit Reasons: 3 Months Intake Note: Patient is here for follow up on PMR. Accompanied by: Self / Same As Patient Allergies No Known Allergies Allergy (Verified 07/17/25 09:57) HPI HPI 3 Months: Details: He had foot and mouth disease with arthritis and nails came off. On prednisone 6mg daily. [facility] Medical History Excessive daytime sleepiness PMR (polymyalgia rheumatica) Excessive daytime sleepiness CARMENCITA (obstructive sleep apnea) Other glacing machine tender (current) drug therapy Inflammatory arthritis Greater trochanteric bursitis of both hips Muscle weakness Infrapatellar bursitis of right knee Family History Father Type I diabetes mellitus Mother Breast cancer Son Type I diabetes mellitus Physical Exam Vital Signs: Last Vital Signs Pulse 61 07/17/25 09:56 BP 108/80 07/17/25 09:56 Pulse Ox 100 07/17/25 09:56 Oxygen Delivery Method Room Air 07/17/25 09:56 BMI result Body Mass Index 32.0 Const Other: General: Comfortable CVS: RRR Respiratory: clear to auscultation bilaterally. Good respiratory effort Skin: No lesions seen MSK: No synovitis. No tender joints. Normal range of motion of upper extremities and lower extremities. 5/5 power upper extremities and lower extremities Assessment & Plan Assessment & Plan (1) Muscle weakness: Comment: Controlled on prednisone 5 mg daily. He is tolerating methotrexate. History: Initially he presented as PMR 05/2023 with weakness in his thighs/pain in groins progressing to bilateral shoulder pain. ESR was 81 mm/hr. He was diagnosed with PMR and treated for with prednisone 20mg qd tapered slowly but has relapsed when prednisone was decreased to 5 mg daily with development of inflammatory arthritis, and lower extremity proximal muscle weakness R>L. 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 He has had chronic mild elevation in CK. Myositis specific panel negative. MRI right femur December 2024 unremarkable. EMG March 2025 reveals polyneuropathy without changes suggestive of myopathic disorder. Methotrexate started March 2025. Code(s): M62.81 - Muscle weakness (generalized) Category: Medical Plan: Start decreasing prednisone 1 mg every month Continue methotrexate 12.5 mg once weekly Continue folic acid 1 mg daily Continue calcium 600 mg and vitamin-D 20 mcg daily. He will need a bone density if he has not had one in the last 2 years. I will monitor muscle enzymes Diabetes management per PCP. Likely long-term glucocorticoid treatment has contributed to diabetes as patient was prediabetic in the past. Return to clinic 3 months (2) Other intermediate (current) drug therapy: Comment: Long-term use of glucocorticoid therapy Code(s): Z79.899 - Other intermediate (current) drug therapy Category: Medical Plan: See above (3) PMR (polymyalgia rheumatica): Comment: Initial diagnosed 05/2023 with relapse disease when prednisone was tapered to 5 mg daily. Code(s): M35.3 - Polymyalgia rheumatica Category: Medical Plan: See above (4) Inflammatory arthritis: Code(s): M19.90 - Unspecified osteoarthritis, unspecified site Category: Medical Plan: See above (5) Myositis: Code(s): M60.9 - Myositis, unspecified Category: Medical Plan: See above Orders: Orders Complete Blood Count Auto Diff Today M19.90 - Unspecified osteoarthritis, unspecified site, M35.3 - Polymyalgia rheumatica, Z79.899 - Other glacing machine tender (current) drug therapy Creatinine Today M19.90 - Unspecified osteoarthritis, unspecified site, M35.3 - Polymyalgia rheumatica, Z79.899 - Other intermediate (current) drug therapy Erythrocyte Sedimentation Rate Today M19.90 - Unspecified osteoarthritis, unspecified site, M35.3 - Polymyalgia rheumatica, Z79.899 - Other glacing machine tender (current) drug therapy Aldolase Today M19.90 - Unspecified osteoarthritis, unspecified site, M35.3 - Polymyalgia rheumatica Alanine Aminotransferase Today M19.90 - Unspecified osteoarthritis, unspecified site, M35.3 - Polymyalgia rheumatica, Z79.899 - Other glacing machine tender (current) drug therapy Aspartate Amino Transferase Today M19.90 - Unspecified osteoarthritis, unspecified site, M35.3 - Polymyalgia rheumatica, Z79.899 - Other intermediate (current) drug therapy C Reactive Protein Today M19.90 - Unspecified osteoarthritis, unspecified site, M35.3 - Polymyalgia rheumatica, Z79.899 - Other intermediate (current) drug therapy Creatine Kinase Total Today M19.90 - Unspecified osteoarthritis, unspecified site, M35.3 - Polymyalgia rheumatica Medications: Changed From methotrexate sodium 12.5 mg (5 x 2.5 mg) PO QWEEK 20 tabs 2RF 4 weeks To methotrexate sodium 12.5 mg (5 x 2.5 mg) PO QWEEK 60 tabs 0RF 12 weeks From prednisone Take with food 6 mg (6 x 1 mg) PO DAILY 30 days 180 tabs 2RF To prednisone Take 5 tablets daily 1 month, 4 tablets daily 1 month, 3 tablets daily 1 month 1 mg PO DAILY 90 tabs 0RF 90 days Refilled folic acid 1 mg PO DAILY 90 tabs 4RF Coding Level of Care Code Est Pt Level 4 (97075) Complex EM visit Add On G2211 Diagnoses Muscle weakness M62.81 Other glacing machine tender (current) drug therapy Z79.899 PMR (polymyalgia rheumatica) M35.3 Inflammatory arthritis M19.90 Myositis M60.9
--- OUTSIDE RECORDS SUMMARY | 2025-07-17 11:09 | XMS_ITS | Clinical Summary ---
Author Organization [facility] Address [address] [place] [id number] Phone Care Team Providers Care Him Analyst Name Role Phone Albaro Nelson Primary Care Provider [phone] Allergies Active Allergy Reactions Criticality Noted Date [...] ZOSTER VACCINES (2 of 2) 05/05/2022 03/10/2022 INFLUENZA VACCINE (#1) 2025 , 05/21/2022, 06/23/2021, Additional history exists COVID-19 VACCINE ( season) 2025 09/26/2023, 05/21/2022, 07/30/2021, Additional history exists RSV [...] file Insurance MEDICARE PART A & B [employer] MEDICARE SUPPLEMENT MEDICARE PART A & B [employer] SUPPLEMENT MEDICARE PART A & B [facility] MEDICARE SUPPLEMENT MEDICARE PART A & [place] [address] [place] [address] MEDICARE SUPPLEMENT MEDICARE PART A & B [facility] MEDICARE SUPPLEMENT MEDICARE PART A & B [facility] SUPPLEMENT Care Teams Him Analyst Relationship Specialty Start Date End Date Albaro Nelson PA [address] [place] [address] PCP - General Physician Welfare Investigator 08/08/23 Additional Source Comments The information contained in this document represents components of the legal health record. It is not the complete legal health record.[facility]
--- OUTSIDE RECORDS SUMMARY | 2025-07-17 11:09 | XMS_ITS | Clinical Summary ---
Author Organization [facility] Address [address] [place] [address] Care Team Providers Care Sterile Process Coordinator Name Role Phone Manoj Bowers MD Primary [...] Health Maintenance Due Date Last Done Comments Colorectal Cancer Screening: Colonoscopy 1952 DTaP,Tdap,and Td Vaccines (1 - Tdap) 1971 Pneumococcal Vaccine: 50+ Ye ars (1 of 1 - PCV) 2002 Zoster Vaccines (1 of 2) 2002 Abdominal Aortic Aneurysm (A AA) Screen 08/21/2022 Cholesterol Screening (Lipid Panel) 08/21/2022 Falls Risk Assessment 08/21/2022 Hepatitis C Screening 08/21/2022 Social Influencers of Health Screening 08/21/2022 Depression Screening 09/12/2024 COVID-19 Vaccine (1 - 2023-2 5 season) 2025 Influenza Vaccine (#1) 2025 RSV Immunization Adult [...] age to complete this topic Care Teams Sterile Process Coordinator Relationship Specialty Start Date End Date Manoj Bowers MD PCP - General Internal Medicine 10/02/20
== END 2025-07-17 10:51 | disposition home or self-care (01) ==
PROVIDERS: PCP Physician Assistant; Visit Provider Internal Medicine Rheumatology
DX: M62.81 Muscle weakness (generalized) (principal); Z79.899 Other long term (current) drug therapy; M35.3 Polymyalgia rheumatica; M19.90 Unspecified osteoarthritis, unspecified site; M60.9 Myositis, unspecified
CPT/HCPCS: 99214; G2211

== ENCOUNTER 2025-07-17 09:50 | Outpatient (REF) | payer MEDICARE, OTHER, SELFPAY ==
[2025-07-17 13:33] LABS: MANUAL DIFF FLAG NO
[2025-07-17 13:42] LABS: Hematocrit 46.9 % (42.0-52.0); Hemoglobin 15.9 g/dl (14.0-18.0); Imm Gran Abs Auto 0.03 X10*3/uL (0.00-0.03); Imm Gran Pct Auto 0.4 % (0.0-0.4); Lymphocytes Absolute Auto 0.8 X10*3/uL (1.2-4.9); Mean Corpuscular HGB Conc 33.9 g/dl (31.0-36.0); Mean Corpuscular Hemoglobin 32.4 pg (27.0-33.0); Mean Corpuscular Volume 95.5 fL (80.0-98.0); NRBC Abs Auto 0.000 X10*3/uL (0.0-0.012); NRBC Pct Auto 0.0 /100WBC (0.0-0.2); Platelet Count 164 X10*3/uL (160-400); Red Blood Count 4.91 X10*6/uL (4.60-5.80); White Blood Count 7.7 X10*3/uL (4.8-10.8)
[2025-07-17 18:49] LABS: Alanine Aminotransferase 37 U/L (0-40); Aspartate Amino Transferase 32 U/L (5-37); Estimated Glomerular Filt Rate > 60
== END 2025-07-17 09:51 | disposition home or self-care (01) ==
LOC: HO.HKASLDS 09:50
PROVIDERS: PCP Physician Assistant; Visit Provider Internal Medicine Rheumatology
DX: M62.81 Muscle weakness (generalized) (principal); M35.3 Polymyalgia rheumatica; M19.90 Unspecified osteoarthritis, unspecified site; M60.9 Myositis, unspecified; Z79.631 Long term (current) use of antimetabolite agent; Z79.52 Long term (current) use of systemic steroids; Z79.899 Other long term (current) drug therapy
CPT/HCPCS: 36415; 82085; 82550; 82565; 84450; 84460; 85025; 85652; 86140; 99212